=== PATIENT | female | born 1955 | race Caucasian/White ===

== ENCOUNTER 2020-11-13 14:23 | Emergency (ER) | payer OTHER, SELFPAY ==
[2020-11-13 14:26] VITALS: BP 165/90; PULSE 92; RESP 18; TEMP 36.9; O2SAT 97; BMI 23.7
[2020-11-13 16:24] LABS: Influenza A PCR NEGATIVE (Negative); Influenza B PCR NEGATIVE (Negative); Resp Syncy Virus RNA Qual PCR NEGATIVE (Negative); SARS COV2 PCR INHOUSE NEGATIVE (Negative)
--- NOTE | 2020-11-13 16:55 | ED.URI ---
HPI - URI/Sore Throat General Chief Complaint: Upper Respiratory Symptoms Stated Complaint: HEADACHE SORE THROAT Time Seen by Provider: 11/13/20 16:32 Source: patient and behavioral modification assistant Mode of arrival: ambulatory Limitations: language barrier History of Present Illness HPI Narrative: 65 yo female here with cough, sore throat, wheezing x 4 days. No chest pain, shortness of breath, fevers, chills. MD elicited complaint: cough and sore throat Related Data Previous Rx's Medication Instructions Recorded prednisone 40 mg PO DAILY #10 tab 11/13/20 Allergies Allergy/AdvReac Type Severity Reaction Status Date / Time aspirin [Aspirin] Allergy Unknown HEART Unverified 05/12/20 15:56 PALPITATIONS Review of Systems Review of Systems: Yes all other systems are reviewed and are negative Constitutional: Constitutional: Reports no additional constitutional complaints, Denies body ache(s), Denies chills, Denies fever(s), Denies headache(s) and Denies weakness Eyes: Eyes: Reports no additional eye complaints and Denies change in vision ENT: Reports system reviewed and no additional complaints, except as documented, Denies dizziness, Denies headache(s), Denies nasal congestion, Denies nasal discharge, Denies neck pain and Reports sore throat Cardiovascular: Cardiovascular: Reports no additional cardiovascular complaints, Denies chest pain, Denies leg edema and Denies dyspnea Respiratory: Respiratory: Reports no additional respiratory complaints, Reports cough and Denies dyspnea Gastrointestinal: Gastrointestinal: Reports no additional gastrointestinal complaints, Denies abdominal pain, Denies diarrhea, Denies nausea and Denies vomiting Genitourinary: Genitourinary: Reports no additional female genitourinary complaints and Denies urinary incontinence Musculoskeletal: Musculoskeletal: Reports no additional musculoskeletal complaints, Denies back pain, Denies arthralgias, Denies joint swelling, Denies neck pain, Denies numbness and Denies tingling Integumentary/Breasts: Skin/Breast: Reports system reviewed and no additional complaints, except as docu and Denies rash Neurologic: Denies Abnormal speech present, Denies dizziness, Denies headache(s), Denies numbness, Denies tingling and Denies weakness PMFSH Past Medical History Attestation statement: The following information was validated with the patient. Source: old records reviewed and nursing notes reviewed Medical History Asthma Hypercholesteremia Hypertension Social History Social History Advance Directives: No Advance Directives Information Provided: No Physical Exam Vital Signs: Vital Signs: Last Vital Signs Temp 98.5 F 11/13/20 14:26 Pulse 92 11/13/20 14:26 Resp 18 11/13/20 14:26 BP 165/90 H 11/13/20 14:26 Pulse Ox 97 11/13/20 14:26 Body Mass Index 23.7 Const: General: cooperative, healthy appearing, comfortable and no acute distress Orientation/consciousness: patient oriented x3 Limitations: no limitations HENMT: Head: Yes normal to inspection Ears: hearing grossly normal bilaterally and TM's normal bilaterally General nose exam: Normal external nose present Face and sinus: Yes normal facial exam Mouth: Normal oral and palatal mucosa present Throat: Yes posterior oropharynx normal, Yes tonsils normal, Yes uvula midline and No peritonsillar mass Eyes: General: appearance normal, both eyes and all related structures Pupils: Equal, round and reactive pupils present Neck: Neck: Yes normal visual inspection Chest: Chest palpation & inspection: normal inspection of the chest Resp: Other: mild exp wheezing Effort & Inspection: normal respiratory effort Cardio: Rate: regular rate Rhythm: regular rhythm Peripheral pulses: Peripheral pulses 2+ throughout GI: Inspection: Yes normal to inspection Palpation (GI): Soft to palpation and nontender Auscultation: normal bowel sounds Back/Spine/Pelvis: Thoracic/Lumbar Spine: thoracic and lumbar spine normal to inspection Skin: General skin exam: no rashes or lesions noted Neuro: General: patient oriented x3, no focal motor deficits and normal sensation to monofilament Cranial nerves: Yes Equal, round and reactive pupils present Cognition (Neuro): normal cognition Speech: No Abnormal speech present Gait exam (Neuro): Normal gait present Motor exam (neuro): 5/5 motor strength present throughout Extrem: General: Yes normal to inspection Course Course Course Narrative: URI symptoms x several days with wheezing. COVID screen negative. Rapid strep negative. Exam not c.w with strep pharyngitis. Mild exp wheezing on exam improved with albuterol MDI. Stable vital signs. Likely viral syndrome. Will start on pred x 5 days, MDI for home. Reviewed worrisome signs/symptoms with patient and when to return to ED. Comfortable with discharge home. MDM - URI/Sore Throat Lab Data Labs: Lab Results 11/13/20 Range/Units 15:36 Coronavirus (PCR) NEGATIVE (Negative) Influenza Type A (PCR) NEGATIVE (Negative) Influenza Type B (PCR) NEGATIVE (Negative) RSV RNA Qual (PCR) NEGATIVE (Negative) Discharge Plan Discharge Clinical Impression: Upper respiratory infection Qualifiers: URI type: unspecified URI Qualified Code(s): J06.9 - Acute upper respiratory infection, unspecified Patient Disposition: Home, Self-Care Instructions: Acute Bronchitis (ED) Additional Instructions: Increase fluids, rest Take motrin or tylenol for pain or fever Salt water gargles Your covid test was negative today use albuterol 2 puffs every 4 hrs as needed for cough or wheezing Prescriptions: New prednisone 20 mg tablet 40 mg PO DAILY Qty: 10 RF: 0 Referrals: Weston Lawton MD [Primary Care Provider] - 2 days Print Language: Norwegian
== END 2020-11-13 19:00 | disposition home or self-care (01) ==
PROVIDERS: Emergency Provider Internal Medicine; PCP Internal Medicine
DX: J06.9 Acute upper respiratory infection, unspecified (principal); Z20.822 Contact with and (suspected) exposure to COVID-19; I10 Essential (primary) hypertension; J45.909 Unspecified asthma, uncomplicated
CPT/HCPCS: 0241U; 36415; 87071; 87880; 99283; 99284

== ENCOUNTER 2022-05-20 11:04 | Emergency (ER) | payer OTHER, SELFPAY | END 2022-05-20 14:01 | disposition left against medical advice (07) | PROVIDERS: Emergency Provider Emergency Medicine; PCP Internal Medicine | DX: M25.512 Pain in left shoulder (principal) ==

== ENCOUNTER 2023-09-18 17:25 | Inpatient (IN) | payer MEDICARE, SELFPAY ==
--- NOTE | ~2023-09-18 | CT_ITS ---
EXAMINATION: CT ANGIOGRAM OF THE CHEST WITH AND WITHOUT CONTRAST (CT PULMONARY ANGIOGRAM FOR PE) CLINICAL INFORMATION: Reason for Exam shortness of breath COMPARISON: Chest x-ray performed earlier today TECHNIQUE: Prior to contrast administration, noncontrast localization images were obtained. Subsequently, multidetector volumetric imaging was performed from the thoracic inlet to below the diaphragms following the administration of 80 mL Omnipaque 350 intravenous contrast. No contrast reaction reported Sagittal, coronal, and MIP oblique sagittal reformatted images were obtained on the CT workstation, uploaded to PACS, and reviewed. This CT examination was performed using dose optimization techniques as appropriate, variously including the following: *Automated exposure control *Adjustment of mA and/or kV according to patient size (this includes techniques or standardized protocols for targeted exams where dose is matched to indication/reason for exam; i.e. extremities or head) *Use of iterative reconstruction technique Total exam dose-length product 92 mGy-cm FINDINGS: QUALITY OF STUDY/CONTRAST BOLUS: Satisfactory. PULMONARY ARTERIES: No pulmonary emboli. THORACIC AORTA: No aneurysm. LUNG: There is diffuse centrilobular emphysema. There is a right infrahilar paramediastinal mass measuring approximately 7.3 cm in craniocaudad length, 4.0 cm in AP and 5.6 cm wide. Focal atelectasis/consolidation seen in the right lower lobe medial basal segment. Rest of lungs are clear and expanded PLEURA: No pleural effusion or pneumothorax. MEDIASTINUM: Normal heart size. No pericardial effusion. No hilar or mediastinal lymphadenopathy. No evidence of septal bowing or right heart strain. CORONARY ARTERY CALCIFICATION: None visualized on this study. CHEST WALL/AXILLA: No axillary or internal mammary lymphadenopathy. OSSEOUS STRUCTURES: No acute or suspicious osseous abnormality. UPPER ABDOMEN: There is 1.5 cm hypodense lesion left hepatic lobe. No additional lesions seen. There is probably a small bone island nonenhancing cyst upper pole left kidney. No reflux of contrast into the hepatic veins to suggest elevated right heart pressures. CT/CT angio chest PE protocol IMPRESSION: 1. No evidence of PE. 2. No evidence of aortic aneurysm. 3. Right infrahilar paramediastinal mass with medial basal segment right lower lobe atelectasis/consolidation. Recommend CT-guided biopsy 4. Diffuse centrilobular emphysema. VTE: negative.
--- NOTE | ~2023-09-18 | XR_ITS ---
EXAMINATION: XR CHEST CLINICAL INFORMATION: Shortness of breath COMPARISON: Previous chest x-ray most recent February 2019 TECHNIQUE: Frontal view of the chest was obtained. FINDINGS: The cardiac and mediastinal contours are normal. There is a new right jugular port with tip projecting over the SVC. There are increased markings at the right lung base suggestive of atelectasis or small infiltrate. There may be a small right pleural effusion. The left lung is clear. No left pleural effusion. Degenerative changes of the spine. XR/XR chest 1V IMPRESSION: Increased markings at the right lung base suggestive of atelectasis or small infiltrate and small right pleural effusion.
--- NOTE | 2023-09-18 17:55 | ECG_ITS ---
Test Reason : DYSPNEA Blood Pressure : / mmHG Vent. Rate : 087 BPM Atrial Rate : 087 BPM P-R Int : 124 ms QRS Dur : 082 ms QT Int : 360 ms P-R-T Axes : 060 052 052 degrees QTc Int : 433 ms Normal sinus rhythm Normal ECG When compared with ECG of 19-AUG-2010 23:03, No significant change was found Referred By: Mike Anderson Electronically Signed By:Evin Kebede
[2023-09-18 18:02] VITALS: BP 124/66; PULSE 91; RESP 20; TEMP 36.8; O2SAT 95
[2023-09-18 18:11] VITALS: BP 124/66; PULSE 86; RESP 20; TEMP 36.8; O2SAT 96; BMI 23.0
[2023-09-18 18:40] LABS: MANUAL DIFF FLAG NO
[2023-09-18 18:43] LABS: Basophils Percent Auto 0.2 % (0-2); Hematocrit 30.4 % (37.0-47.0); Hemoglobin 10.2 g/dl (12.0-16.0); Imm Gran Abs Auto 0.03 X10*3/uL (0.00-0.03); Imm Gran Pct Auto 0.5 % (0.0-0.4); Lymphocytes Absolute Auto 0.4 X10*3/uL (1.2-4.9); Lymphocytes Percent Auto 6.1 % (20-40); Mean Corpuscular HGB Conc 33.6 g/dl (31.0-35.0); Mean Corpuscular Hemoglobin 28.9 pg (27.0-33.0); Mean Corpuscular Volume 86.1 fL (80.0-98.0); Mean Platelet Volume 8.7 fL (9.4-12.3); Monocytes Absolute Auto 0.3 X10*3/uL (0.1-1.2); Monocytes Percent Auto 4.8 % (2-11); Neutrophils Absolute Auto 5.7 x10*3/uL (2.0-8.3); Neutrophils Percent Auto 88.4 % (45-73); Platelet Count 338 X10*3/uL (160-400); Red Blood Count 3.53 X10*6/uL (4.20-5.50); Red Cell Distribution Width 14.6 % (11.0-16.0); White Blood Count 6.4 X10*3/uL (4.8-10.8)
[2023-09-18 18:50] LABS: Prothrombin Time 12.5 SEC (11.1-13.3)
[2023-09-18 18:53] LABS: Partial Thromboplastin Time 25.7 SEC (26.0-36.4)
[2023-09-18 18:57] LABS: Alanine Aminotransferase 16 U/L (0-31); Albumin Level 3.7 g/dL (3.5-5.0); Alkaline Phosphatase 71 U/L (39-117); Anion Gap 12 (12-20); Aspartate Amino Transferase 17 U/L (5-31); Bilirubin Total 0.1 mg/dL (0.0-1.0); Blood Urea Nitrogen 14 mg/dL (9-16); Calcium 8.7 mg/dL (8.4-10.2); Carbon Dioxide 21 mmol/L (22-29); Chloride 106 mmol/L (96-108); Creatinine Clr Calc Pharmacy 85.2; Estimated Glomerular Filt Rate > 60; Glucose Random 105 mg/dL (60-115); Lipase 11 U/L (8-78); Sodium 135 mmol/L (135-145); Total Protein 7.1 g/dL (6.5-8.0)
[2023-09-18 19:03] LABS: B Type Natriuretic Peptide 11 pg/mL (<100)
[2023-09-18 19:04] LABS: COVID-19 Test Negative (Negative); IDNOW Serial# 6674DD1D
--- NOTE | 2023-09-18 19:30 | ED.GENADULT ---
HPI - General Adult General Chief complaint: Dyspnea Stated complaint: SOB HX OF LUNG CA Time Seen by Provider: 09/18/23 17:30 Source: patient, RN notes reviewed and old records reviewed Mode of arrival: EMS Limitations: language barrier History of Present Illness HPI narrative: 68-year-old female past medical history significant for lung cancer with her last chemotherapy treatment yesterday per her report presents for evaluation of shortness of breath, cough. She reports that she has had symptoms for the last 3 or 4 days She denies any fevers or chills but endorses cough She also complains of shortness of breath. She has not on oxygen at baseline Denies any leg swelling Denies any history of DVT or PE. She is not anticoagulated No other complaints or concerns at this time Related Data Previous Rx's Medication Instructions Recorded prednisone 20 mg tablet 40 mg (2 x 20 mg) PO DAILY #10 tabs 11/13/20 amoxicillin 875 mg-potassium 1 tab PO BID #13 tabs 09/19/23 clavulanate 125 mg tablet Allergies Allergy/AdvReac Type Severity Reaction Status Date / Time aspirin [Aspirin] Allergy Unknown HEART Verified 09/18/23 18:14 PALPITATIONS Review of Systems Constitutional: Constitutional: Denies chills, Denies fever(s) and Denies headache(s) Eyes: Eyes: Denies blurry vision ENT: Denies headache(s) and Reports sore throat Cardiovascular: Cardiovascular: Reports chest pain and Reports dyspnea Respiratory: Respiratory: Reports cough, Reports pain with cough, Reports dyspnea and Denies wheezing Gastrointestinal: Gastrointestinal: Denies abdominal pain, Denies nausea and Denies vomiting Musculoskeletal: Musculoskeletal: Denies back pain Integumentary/Breasts: Skin/Breast: Denies rash Neurologic: Denies headache(s) Allergic/Immunologic: Allergic/Immunologic: Denies wheezing [facility] Past Medical History Medical History Asthma Hypercholesteremia Hypertension Social History Social History Advance Directives: No Advance Directives Information Provided: No Physical Exam ED Vital Signs: Vital Signs - 24 hr 09/18/23 18:02 09/18/23 18:11 09/18/23 19:33 Temperature 98.2 F 98.2 F 98.4 F Pulse Rate 91 86 87 Respiratory Rate 20 20 22 H Blood Pressure 124/66 124/66 131/73 Pulse Oximetry 95 96 95 Oxygen Delivery Method Nasal Cannula Nasal Cannula Nasal Cannula Oxygen Flow Rate 2 09/19/23 00:39 Temperature 98.2 F Pulse Rate 77 Respiratory Rate 20 Blood Pressure 124/65 Pulse Oximetry 96 Oxygen Delivery Method Nasal Cannula Oxygen Flow Rate 2 BMI result Body Mass Index 23.0 Const General: healthy appearing, comfortable, no acute distress, alert and awake Nutritional Appearance: well nourished Orientation/consciousness: patient oriented x3 HENMT Head: Yes normocephalic and Yes atraumatic Eyes Eyelids: Yes eyelids normal Conjunctivae: conjunctivae normal Sclerae: sclerae normal Corneas: corneas normal Pupils: Equal, round and reactive pupils present EOM: EOMs intact bilaterally Neck Neck: Yes full ROM Resp Effort & Inspection: normal respiratory effort, able to speak in complete sentences, no audible wheezes and not labored Auscultation: clear to auscultation bilaterally Cardio Rate: regular rate Rhythm: regular rhythm GI Inspection: No distended Palpation (GI): Soft to palpation, not firm, nontender, no guarding and not rigid Skin General skin exam: elasticity normal Neuro General: patient oriented x3 Cranial nerves: Yes Equal, round and reactive pupils present and Yes Bilaterally intact EOM present Cognition (Neuro): normal cognition Extrem Other: Moving all extremities well without any obvious deformities Course Reevaluation(s) Reevaluation #1: Given the patient is hypercoagulable with lung cancer, a CTA was ordered to rule out PE. Time: 20:12 Reevaluation #2: CTA shows a right infrahilar mass and right lower lobe consolidation versus atelectasis. Given the acute symptoms and the fact the patient is immunocompromised, we will treat with Augmentin and azithromycin. Patient does not meet criteria for admission. She ambulated on room air with a sat measuring 93% or better. She will be discharged home per her request. Time: 00:39 Reevaluation #3: Patient was to be discharged. She weighs staff over as she was having a sudden onset of dyspnea. I initially thought she was having anxiety attack, however when I put the O2 sat back on her, the sat was 82% and dropped as low as 72%. She was placed on oxygen and slowly began to improve. Her lungs were clear during this episode but she had tracheal wheezing. She was given a dose of Solu-Medrol. Blood cultures were ordered as well as lactic acid. I do not suspect flash pulmonary edema as the patient did not receive any IV fluids. I considered an allergic reaction, however she has no listed allergies, she had no facial or retropharyngeal edema. Her symptoms improved with chest oxygen. However given the significant hypoxia I feel that she requires at least observation in the hospital. Time: 01:56 Medications Administered Discontinued Medications Generic Name Dose Route Start Last Admin Trade Name Calderon PRN Reason Stop Dose Admin Amoxicillin/Clavulanate Potassium 875 mg 09/19/23 00:40 09/19/23 01:07 Amoxicillin/Potassium Clav 875 Mg Tablet PO 09/19/23 00:41 875 mg ONCE ONE Administration Azithromycin 500 mg 09/19/23 00:40 09/19/23 01:07 Azithromycin 500 Mg Tablet PO 09/19/23 00:41 500 mg ONCE ONE Administration Iohexol 100 ml 09/18/23 21:42 09/18/23 21:42 Iohexol 350 Mg/Ml 100 Ml Infus..Btl IV 09/18/23 21:43 65 ml ONCE ONE Administration Methylprednisolone Sodium Succinate 125 mg 09/19/23 01:43 09/19/23 01:41 Methylprednisolone Sod Succ 125 Mg/2 Ml Vial IVPUSH 09/19/23 01:44 125 mg ONCE ONE Administration Medical Decision Making Medical Decision Making [facility] Narrative: 68-year-old female with past medical history significant for lung cancer reportedly actively undergoing treatment presents for evaluation of shortness of breath for 3-4 days. She is quite well appearing, her oxygen saturation is stable. Plan for labs, chest x-ray, viral swabs. Differential Diagnosis Differential Diagnoses: The differential diagnosis associated with the presentation includes COVID-19 Influenza Lung cancer Pneumonia PE less likely Lab Data MDM Lab Attestation statement: I reviewed the patient's lab results. No leukocytosis. The patient has a mild anemia. Unclear based on his last labs here were just over 5 years ago. the patient denies any active bleeding. No other hematologic abnormalities. The patient's CO2 is low at 21. This may be related to hyperventilation. No other lab abnormalities. 09/18/23 18:34 09/18/23 18:34 Labs: Lab Results 09/18/23 09/18/23 Range/Units 18:34 19:37 WBC 6.4 (4.8-10.8) X10*3/uL RBC 3.53 L (4.20-5.50) X10*6/uL Hgb 10.2 L (12.0-16.0) g/dl Hct 30.4 L (37.0-47.0) % MCV 86.1 (80.0-98.0) fL MCH 28.9 (27.0-33.0) pg MCHC 33.6 (31.0-35.0) g/dl RDW 14.6 (11.0-16.0) % Plt Count 338 (160-400) X10*3/uL MPV 8.7 L (9.4-12.3) fL Immature Gran % (Auto) 0.5 H (0.0-0.4) % Neut % (Auto) 88.4 H (45-73) % Lymph % (Auto) 6.1 L (20-40) % Buchanan % (Auto) 4.8 (2-11) % Eos % (Auto) 0.0 (0-4) % Baso % (Auto) 0.2 (0-2) % Lymph # (Auto) 0.4 L (1.2-4.9) X10*3/uL Buchanan # (Auto) 0.3 (0.1-1.2) X10*3/uL Eos # (Auto) 0.0 (0.0-0.4) X10*3/uL Baso # (Auto) 0.0 (0.0-0.2) X10*3/uL Abs Immat Gran (auto) 0.03 (0.00-0.03) X10*3/uL Absolute Neuts (auto) 5.7 (2.0-8.3) x10*3/uL Absolute Nucleated RBC 0.000 (0.0-0.012) X10*3/uL Nucleated RBC % (auto) 0.0 (0.0-0.2) /100WBC PT 12.5 (11.1-13.3) SEC INR 1.0 (0.9-1.1) APTT 25.7 L (26.0-36.4) SEC Sodium 135 (135-145) mmol/L Potassium 4.0 (3.3-5.1) mmol/L Chloride 106 (96-108) mmol/L Carbon Dioxide 21 L (22-29) mmol/L Anion Gap 12 (12-20) BUN 14 (9-16) mg/dL Creatinine 0.53 (0.5-1.4) mg/dL Estim Creat Clear Calc 85.2 Estimated GFR > 60 Random Glucose 105 (60-115) mg/dL Calcium 8.7 (8.4-10.2) mg/dL Total Bilirubin 0.1 (0.0-1.0) mg/dL AST 17 (5-31) U/L ALT 16 (0-31) U/L Alkaline Phosphatase 71 (39-117) U/L B-Natriuretic Peptide 11 (<100) pg/mL Total Protein 7.1 (6.5-8.0) g/dL Albumin 3.7 (3.5-5.0) g/dL Lipase 11 (8-78) U/L COVID-19 ([facility]) Negative (Negative) COVID-19 Clin Com See Note Influenza Type A ([facility]) Negative (Negative) Influenza Type B ([facility]) Negative (Negative) Influenza A & B Note See Note Discharge Plan Discharge Clinical Impression: Dyspnea, Community acquired pneumonia Patient Disposition: Admitted As Inpatient Instructions: Community Acquired Pneumonia (ED) Additional Instructions: Your workup in the ER today was significant for a possible pneumonia in the right lower lung. Take both antibiotics as prescribed Call your oncologist tomorrow morning and let them know you were diagnosed with pneumonia Return for new or worsening symptoms Prescriptions: New amoxicillin-pot clavulanate 875-125 mg tablet 1 tab PO BID Qty: 13 0RF No Action prednisone 20 mg tablet 40 mg PO DAILY Qty: 10 0RF Interventions: ED Discharge Assessment Last Done: 09/19/23 01:10
[2023-09-18 19:33] VITALS: BP 131/73; PULSE 87; RESP 22; TEMP 36.9; O2SAT 95
[2023-09-18 19:58] LABS: IDNOW Serial# 55D5AD1C; Influenza A Negative (Negative); Influenza B2 Negative (Negative)
[2023-09-18] MEDS: iohexoL 350 MG/ML 100 ML INFUS..BTL IV (21:42)
[2023-09-19] VITALS (12 sets, daily range): BP systolic 100–130; BP diastolic 50–80; PULSE 77–113; RESP 16–28; TEMP 36.7–37.2; O2SAT 74–96; BMI 23.7
[2023-09-19] MEDS: Amoxicillin/Potassium Clav 875 MG TABLET PO (01:07)
[2023-09-19] MEDS: Azithromycin 500 MG TABLET PO (01:07)
[2023-09-19] MEDS: methylPREDNISolone Sod Succ 125 MG/2 ML VIAL IVPUSH (01:41)
[2023-09-19] MEDS: Albuterol Sulfate 7.5 MG, Albuterol/Iprat 2.5/0.5MG 3 ML 3 ML INHALE (02:12)
[2023-09-19 02:17] LABS: Lactic Acid 1.7 mmol/L (0.5-2.0)
[2023-09-19] MEDS: Milk of Magnesia 30 ML ORAL.SUSP PO (02:45)
[2023-09-19] MEDS: LORazepam 1 MG TABLET PO ×3 (02:45→20:26)
--- NOTE | 2023-09-19 03:18 | P.HPHOSP_ITS ---
History of Present Illness Date of Service: 09/19/23 Attending physician on admission: Ngozi Bar Chief Complaint: Shortness of breath Marsha Gaffney is a 68 years old woman with past medical history significant for lung cancer on chemotherapy (last one 3 days ago) and radiation (at [facility]) presents to the emergency department complaining of worsening shortness of breath over the last few days. She said that her throat is very dry and she has been drinking lots of water in order to relieve the dryness of her throat. She said that she choked with water before current symptoms. She does complain of occasional cough. Her sputum is clear but sometimes they are minimal quantity of blood. She is anxious. She denied any chest pain, wheezing, nausea, vomiting, fever or chills. She denied any acute gastrointestinal genitourinary symptoms. She is a former tobacco smoker. She denies alcohol abuse or illicit drug use. In the ED, she was found to have sinus tachycardia and tachypnea. Blood workup including CBC and CMP is basically unremarkable. There is no lactic acidosis She underwent a pulmonary CTA that showed possible consolidation in the right lower lobe + right perihilar mass. After receiving treatment with bronchodilator therapy and IV steroids patient's respiratory issues improve. However, she became diaphoretic, pale and tachypnea while ambulating. Her oxygen saturation dropped to 70% responded went to oxygen therapy. ED tx: Azithromycin 500 mg p.o. Augmentin 875 mg p.o. DuoNeb, Solu-Medrol 125 mg IV, albuterol 7.5 mg/ipratropium 3 mL, MOM 30 mL p.o. Review of Systems 2 Review of Systems: All 12 systems were reviewed and normal except as noted in HPI. [facility] Medical History Asthma Hypercholesteremia Hypertension Social History Advance Directives: No Advance Directives Information Provided: No Meds Allergies Allergy/AdvReac Type Severity Reaction Status Date / Time aspirin [Aspirin] Allergy Unknown HEART Verified 09/18/23 18:14 PALPITATIONS Active Medications: Current Medications Acetaminophen (Acetaminophen 325 Mg Tablet) 975 mg PO Q6H PRN PRN Reason: Pain, Mild (Pain Scale 1-3) Albuterol Sulfate (Albuterol Sulfate (0.083%) 2.5 Mg/3 Ml Vial.Neb) 2.5 mg INHALE RQ4H WHILE AWAKE PRN PRN Reason: wheezing Atorvastatin Calcium (Atorvastatin Calcium 20 Mg Tablet) 20 mg PO BEDTIME [facility] Heparin Sodium (Porcine) (Heparin Sodium,Porcine 5,000 Unit/Ml Vial) 5,000 unit SUBCUT Q8H MEGAN Ampicillin Sodium/Sulbactam (Sodium 1.5 gm/ Sodium Chloride) 100 mls @ 200 mls/hr IV Q6H [facility] Lisinopril (Lisinopril 10 Mg Tablet) 10 mg PO DAILY [facility]; Protocol Lorazepam (Lorazepam 1 Mg Tablet) 1 mg PO BID [facility] Last Admin: 09/19/23 02:45 Dose: 1 mg Megestrol Acetate (Megestrol Acetate 20 Mg Tablet) 40 mg PO DAILY [facility] Sodium Chloride (0.9 % Sodium Chloride Flush 3 Ml Syringe) 3 ml IVFLUSH QSHIFT [facility] Home Medications Medication Instructions Recorded Confirmed Last Taken Type atorvastatin 20 mg tablet 20 mg PO BEDTIME 09/19/23 09/19/23 Unknown History ipratropium 20 mcg-albuterol 100 1 puff inhalation Q4H PRN wheezing 09/19/23 09/19/23 Unknown History mcg/actuation mist for inhalation (Combivent Respimat) lisinopril 10 mg tablet 10 mg PO DAILY 09/19/23 09/19/23 Unknown History lorazepam 1 mg tablet 1 - 2 mg PO BID 09/19/23 09/19/23 Unknown History megestrol 40 mg tablet 40 mg PO DAILY 09/19/23 09/19/23 Unknown History ondansetron 8 mg disintegrating 8 mg PO TID PRN Nausea And Vomiting 09/19/23 09/19/23 Unknown History tablet Physical Exam 2 Vital Signs and Narrative: Vital Signs: Last Vital Signs Temp 98.2 F 09/19/23 00:39 Pulse 110 H 09/19/23 02:14 Resp 26 H 09/19/23 02:14 BP 130/70 09/19/23 02:07 Pulse Ox 74 L 09/19/23 01:40 O2 Del Method Room Air 09/19/23 01:40 O2 Flow Rate 2 09/19/23 00:39 Oxygen Flow Rate 2 09/18/23 18:11 BMI result Body Mass Index 23.0 Constitutional - Awake and Alert, No apparent distress. Anxious. Cooperative. HEENT - atraumatic. Normocephalic. Dry oral mucosa Heart - tachycardia. Regular rhythm. No murmur. Lungs - Normal lung expansion, Normal respiratory effort, No respiratory distress, tachypnea. Mild crackles right base. No wheezing. No rhonchi. Gastrointestinal - NT / ND; +BS; No rebound or guarding Extremities - no calf tenderness bilaterally, no swelling Musculoskeletal - Normal inspection, normal ROM Skin - Warm/Dry Neurological - Alert & oriented x3 Psychological - Anxious Results Labs 09/18/23 18:34 09/18/23 18:34 Labs: Laboratory Results - last 24 hr 09/18/23 09/18/23 09/19/23 18:34 19:37 01:52 MCV 86.1 MCH 28.9 MCHC 33.6 RDW 14.6 Plt Count 338 MPV 8.7 L Immature Gran % (Auto) 0.5 H Neut % (Auto) 88.4 H Lymph % (Auto) 6.1 L [place] % (Auto) 4.8 Eos % (Auto) 0.0 Baso % (Auto) 0.2 Lymph # (Auto) 0.4 L [place] # (Auto) 0.3 Eos # (Auto) 0.0 Baso # (Auto) 0.0 Abs Immat Gran (auto) 0.03 Absolute Neuts (auto) 5.7 Absolute Nucleated RBC 0.000 Nucleated RBC % (auto) 0.0 PT 12.5 INR 1.0 APTT 25.7 L Anion Gap 12 Estim Creat Clear Calc 85.2 Estimated GFR > 60 Random Glucose 105 Lactic Acid 1.7 Calcium 8.7 Total Bilirubin 0.1 AST 17 ALT 16 Alkaline Phosphatase 71 B-Natriuretic Peptide 11 Total Protein 7.1 Albumin 3.7 Lipase 11 COVID-19 (TAYLOR) Negative COVID-19 Clin Com See Note Influenza Type A (MAKSIM) Negative Influenza Type B (MAKSIM) Negative Influenza A & B Note See Note Imaging Radiologist's Impressions: Impressions Chest X-Ray 09/18/23 17:10 IMPRESSION: Increased markings at the right lung base suggestive of atelectasis or small infiltrate and small right pleural effusion. Chest CTA 09/18/23 21:57 IMPRESSION: 1. No evidence of PE. 2. No evidence of aortic aneurysm. 3. Right infrahilar paramediastinal mass with medial basal segment right lower lobe atelectasis/consolidation. Recommend CT-guided biopsy 4. Diffuse centrilobular emphysema. VTE: negative. Assessment and Plan (1) Aspiration pneumonia: Qualifiers: Aspiration pneumonia type: unspecified Laterality: right Lung location: lower lobe of lung Qualified Code(s): J69.0 - Pneumonitis due to inhalation of food and vomit Status: Acute (2) Hypoxia: Status: Acute Plan Marsha Gaffney is a 68 years old woman with past medical history significant for lung cancer on chemotherapy and radiation: * Hypoxia likely secondary to pneumonia, likely aspiration. Admit to hospitalist service. Telemetry. Pulse oximetry. Continue supplemental oxygen to keep oxygen saturation above 90. Start treatment with Unasyn IV. Bronchodilator therapy as needed. Swallow evaluation. * Hyperlipidemia. Continue statin. * Essential hypertension. Continue lisinopril. * Anxiety. Continue Ativan 1 mg p.o. twice daily as needed. * Anemia. Chronic. Continue to monitor hemoglobin. (pt was unable to provide pre med rec -official med rec is pending). DVT prophylaxis: Heparin subcut. Code status: Full. Patient will need hospitalization for at least 2 midnights for aspiration pneumonia treatment with supplemental oxygen, IV antibiotic therapy, bronchodilator therapy and close monitoring of vital signs Quality Stroke Does the patient have a stroke diagnosis?: No VTE Prior VTE?: No VTE Risk Level:: Medical - moderate - high VTE Device Contraindication: Treatment Not Indicated VTE Drug Contraindication: N/A - Med Ordered
[2023-09-19 07:04] LABS: Hematocrit 30.8 % (37.0-47.0); Imm Gran Abs Auto 0.03 X10*3/uL (0.00-0.03); Imm Gran Pct Auto 0.4 % (0.0-0.4); Lymphocytes Absolute Auto 0.1 X10*3/uL (1.2-4.9); Lymphocytes Percent Auto 1.2 % (20-40); MANUAL DIFF FLAG SCAN; Mean Corpuscular HGB Conc 32.5 g/dl (31.0-35.0); Mean Corpuscular Hemoglobin 28.1 pg (27.0-33.0); Mean Corpuscular Volume 86.5 fL (80.0-98.0); Mean Platelet Volume 9.2 fL (9.4-12.3); Monocytes Absolute Auto 0.1 X10*3/uL (0.1-1.2); Monocytes Percent Auto 0.8 % (2-11); Neutrophils Absolute Auto 7.2 x10*3/uL (2.0-8.3); Neutrophils Percent Auto 97.6 % (45-73); Platelet Count 320 X10*3/uL (160-400); Red Blood Count 3.56 X10*6/uL (4.20-5.50); Red Cell Distribution Width 14.5 % (11.0-16.0); SCAN SMEAR FLAG 1; White Blood Count 7.4 X10*3/uL (4.8-10.8)
--- NOTE | 2023-09-19 07:10 | PC.NURSE ---
Assumed care at this time, called pharmacy for medication Unasyn that was due at 6am. Also called for darell.
[2023-09-19 07:12] LABS: Anion Gap 15 (12-20); Blood Urea Nitrogen 12 mg/dL (9-16); Calcium 8.9 mg/dL (8.4-10.2); Carbon Dioxide 21 mmol/L (22-29); Chloride 105 mmol/L (96-108); Creatinine Clr Calc Pharmacy 80.6; Estimated Glomerular Filt Rate > 60; Glucose Random 130 mg/dL (60-115); Potassium 3.7 mmol/L (3.3-5.1); Sodium 137 mmol/L (135-145)
[2023-09-19 07:32] LABS: SLIDE REVIEW VERIFIED
[2023-09-19] MEDS: lisinopriL 10 MG TABLET PO (07:59)
[2023-09-19] MEDS: Heparin Sodium,Porcine 5,000 UNIT/ML VIAL 5000 UNIT SUBCUT ×3 (07:59→21:42)
--- NOTE | 2023-09-19 08:08 | PC.NURSE ---
Pt is a&ox4,respitations even and unlabored. denies cp and sob at this time. FIDEL, on 2lt nc. able to make needs known. Breakfast tray given.
[2023-09-19] MEDS: Ampicillin Sodium/Sulbactam Na 1.5 GM in 0.9 % Sodium Chloride 100 ML IV ×3 (08:17→20:26)
[2023-09-19] MEDS: Megestrol Acetate 20 MG TABLET 40 MG PO (08:18)
[2023-09-19] MEDS: 0.9 % Sodium Chloride Flush 3 ML SYRINGE IVFLUSH ×3 (08:35→20:26)
--- NOTE | 2023-09-19 11:42 | MHC.CM.PN ---
IMM 09/19. Pt lives with her son, is self-care. Son Juan will transport her home. HCP completed with pt, now on file. PCP: Dr. Weston Lawton
--- NOTE | 2023-09-19 13:49 | MHC.SL.SWA ---
Speech Pathologist Impression: WFL Risk of Aspiration Due to: History of Pneumonia Dysphasia Diet Status: All aspects of swallow WFL. Liquid Consistency and Strategies for Safe Swallow: Liquid Intake Recommendation: Thin Liquid Intake Strategies: Unrestricted Solid Food Consistency: Dietary Recommendations: Regular Additional Modifications to Solid Foods: Patient may need reminders not to drink fluids when reclined. Oral Medication Intake: Whole with Liquid Please contact the pharmacy regarding appropriate crushable or liquid drug formulations that are available whenever modified delivery is recommended. Compensatory Strategies and Precautions to be Taken for Safe Swallow: Sitting Upright (90 deg) Liquids from Cup Liquids from Straw Supervision While Eating and Drinking for Safe Swallow: None Needed Foods to Avoid: Swallowing Recommended Treatments: Recommendation for Speech: NA:Typical Evaluation Comment: Patient presents with all aspects of oral motor function and swallow function WFL. Recommend patient continue on current diet of REGULAR with THIN lqiuds, pills whole with liquid. No further speech services warranted as all aspects WFL. Patient may need reminders to be sure to sit up when drinking or eating and not be reclined. RN notified of results/recommendations in person, MD/RD by secure text. REGISTERED OCCUPATIONAL THERAPIST will D/C. Frequency/Duration: Date Range for Service Req: Timeline to reassess: Barrel Driller Clinican/Clinical Fellow: No Supervisory Statement: I have reviewed and agree with the student/clinical fellow's documentation: N/A Speech Language Pathologist: Kyra Thomas M.A., [facility]-REGISTERED OCCUPATIONAL THERAPIST
--- NOTE | 2023-09-19 16:40 | PM.EVENT ---
Event Note Date of Service: 09/19/23 Event Note: seen and examined this morning follow up for acute respiratory failure with hypoxia due to probable aspiration pneumonia and underlying lung cancer seen by speech - recommend regular diet with thin liquids breathing better, still with cough, no sob at rest blood cultures pending continue abx, remainder of plan as per admission H&P Time Spent With Patient Time: Total time managing care of this patient today ____ minutes.
[2023-09-19] MEDS: Atorvastatin Calcium 20 MG TABLET PO (20:26)
[2023-09-19] MEDS: Docusate Sodium 100 MG CAPSULE PO (20:26)
[2023-09-20] MEDS: Ampicillin Sodium/Sulbactam Na 1.5 GM in 0.9 % Sodium Chloride 100 ML IV ×4 (02:21→21:06)
[2023-09-20 03:53] VITALS: BP 123/65; PULSE 94; RESP 18; TEMP 37.1; O2SAT 96
[2023-09-20] MEDS: Heparin Sodium,Porcine 5,000 UNIT/ML VIAL 5000 UNIT SUBCUT ×3 (05:30→21:05)
[2023-09-20 07:51] VITALS: BP 111/74; PULSE 90; RESP 18; TEMP 36.2; O2SAT 91
[2023-09-20] MEDS: Megestrol Acetate 20 MG TABLET 40 MG PO (09:07)
[2023-09-20] MEDS: lisinopriL 10 MG TABLET PO (09:07)
[2023-09-20] MEDS: LORazepam 1 MG TABLET PO ×2 (09:07→21:05)
[2023-09-20] MEDS: 0.9 % Sodium Chloride Flush 3 ML SYRINGE IVFLUSH ×2 (09:07→14:41)
[2023-09-20 11:21] VITALS: BP 123/76; PULSE 112; RESP 18; TEMP 37; O2SAT 94
--- NOTE | 2023-09-20 15:31 | P.PNIM_ITS ---
Subjective Subjective Date of Service: 09/20/23 Interval History: seen and examined this morning follow up for pneumonia breathing improving at rest, but still with dypsnea on exertion ongoing cough Review of Systems Review of Systems: Yes all other systems are reviewed and are negative Constitutional Constitutional: Denies chills and Denies fever(s) Cardiovascular Cardiovascular: Denies chest pain, Denies palpitations and Reports dyspnea on exertion Respiratory Respiratory: Reports cough and Reports dyspnea on exertion Endocrine Endocrine: Denies palpitations Physical Exam 2 Vital Signs: Vital Signs: Last Vital Signs Temp 98.6 F 09/20/23 11:21 Pulse 112 H 09/20/23 11:21 Resp 18 09/20/23 11:21 BP 123/76 09/20/23 11:21 Pulse Ox 94 09/20/23 11:21 O2 Del Method Room Air 09/20/23 11:21 O2 Flow Rate 1 09/19/23 07:57 Oxygen Flow Rate 2 09/18/23 18:11 BMI result Body Mass Index 23.7 Const: General: cooperative, comfortable, alert and awake Nutritional Appearance: average body habitus Orientation/consciousness: patient oriented x3 Resp: Other: no wheeze Effort & Inspection: normal respiratory effort, able to speak in complete sentences, no respiratory distress and no use of accessory muscles Cardio: Rate: tachycardic GI: Inspection: No distended Palpation (GI): Soft to palpation and nontender Neuro: General: patient oriented x3, moves all extremities and CN's II-XI intact bilaterally Extrem: General: Yes no pedal edema Objective Data Active Medications Acetaminophen (Acetaminophen 325 Mg Tablet) 975 mg PO Q6H PRN PRN Reason: Pain, Mild (Pain Scale 1-3) Albuterol Sulfate (Albuterol Sulfate (0.083%) 2.5 Mg/3 Ml Vial.Neb) 2.5 mg INHALE RQ4H WHILE AWAKE PRN PRN Reason: wheezing Atorvastatin Calcium (Atorvastatin Calcium 20 Mg Tablet) 20 mg PO BEDTIME [facility] Last Admin: 09/19/23 20:26 Dose: 20 mg Documented By: KEVIN Docusate Sodium (Docusate Sodium 100 Mg Capsule) 100 mg PO BEDTIME [facility] Last Admin: 09/19/23 20:26 Dose: 100 mg Documented By: KEVIN Heparin Sodium (Porcine) (Heparin Sodium,Porcine 5,000 Unit/Ml Vial) 5,000 unit SUBCUT Q8H [facility] Last Admin: 09/20/23 14:41 Dose: 5,000 unit Documented By: FAVIAN Ampicillin Sodium/Sulbactam (Sodium 1.5 gm/ Sodium Chloride) 100 mls @ 200 mls/hr IV Q6H [facility] Last Infusion: 09/20/23 15:19 Dose: Infused Documented By: FAVIAN Lisinopril (Lisinopril 10 Mg Tablet) 10 mg PO DAILY [facility]; Protocol Last Admin: 09/20/23 09:07 Dose: 10 mg Documented By: FAVIAN Lorazepam (Lorazepam 1 Mg Tablet) 1 mg PO BID [facility] Last Admin: 09/20/23 09:07 Dose: 1 mg Documented By: FAVIAN Megestrol Acetate (Megestrol Acetate 20 Mg Tablet) 40 mg PO DAILY [facility] Last Admin: 09/20/23 09:07 Dose: 40 mg Documented By: FAVIAN Simethicone (Simethicone 80 Mg Tab.Chew) 80 mg PO QIDWMHS PRN PRN Reason: Gas Sodium Chloride (0.9 % Sodium Chloride Flush 3 Ml Syringe) 3 ml IVFLUSH QSHIFT [facility] Last Admin: 09/20/23 14:41 Dose: 3 ml Documented By: FAVIAN Labs 09/19/23 05:50 09/19/23 05:50 Microbiology Microbiology Results: Microbiology 09/19/23 01:52 Blood Culture - Preliminary Blood - Venous No growth after 24 hours. 09/19/23 01:52 Blood Culture - Preliminary Blood - Venous No growth after 24 hours. Assessment and Plan (1) Aspiration pneumonia: Status: Acute Plan This is a 68 years old woman with past medical history significant for lung cancer on chemotherapy and radiation who presented with cough and sob found to have pneumonia Acute hypoxic respiratory failure due to pneumonia, likely aspiration. continue Unasyn IV, started 09/19 seen by speech, rec regular diet breathing treatments and cough syrup Blood cultures negative to date Hyperlipidemia. Continue statin. Essential hypertension. Continue lisinopril. Anxiety. Continue Ativan Chronic normocytic anemia Above transfusion threshold lung cancer outpatient follow up DVT prophylaxis: Heparin subcut. Code status: Full. Patient requires ongoing inpatient stay for aspiration pneumonia treatment with supplemental oxygen, IV antibiotic therapy, bronchodilator therapy and close monitoring of vital signs Quality Stroke Does the patient have a stroke diagnosis?: No VTE Prior VTE?: No VTE Risk Level:: Medical - moderate - high VTE Device Contraindication: Treatment Not Indicated VTE Drug Contraindication: N/A - Med Ordered
--- NOTE | 2023-09-20 15:42 | MHC.CM.PN ---
EMR reviewed and per MD rounds, pt is not medically cleared for D/C due to the need for management of pneumonia. CM will continue to follow.
[2023-09-20 16:00] VITALS: BP 134/63; PULSE 98; RESP 18; TEMP 37.1; O2SAT 96
[2023-09-20 19:39] VITALS: BP 107/61; PULSE 95; RESP 20; TEMP 36.3; O2SAT 97
[2023-09-20] MEDS: Docusate Sodium 100 MG CAPSULE PO (21:05)
[2023-09-20] MEDS: Atorvastatin Calcium 20 MG TABLET PO (21:05)
[2023-09-20] MEDS: Zolpidem Tartrate 5 MG TABLET PO (21:47)
[2023-09-21] VITALS: BP 116/72; PULSE 96; RESP 18; TEMP 36.8; O2SAT 98
[2023-09-21] MEDS: Ampicillin Sodium/Sulbactam Na 1.5 GM in 0.9 % Sodium Chloride 100 ML IV ×2 (03:40→08:35)
[2023-09-21 03:43] VITALS: BP 106/57; PULSE 87; RESP 18; TEMP 36.4; O2SAT 94
[2023-09-21] MEDS: Heparin Sodium,Porcine 5,000 UNIT/ML VIAL 5000 UNIT SUBCUT (05:14)
[2023-09-21 07:14] VITALS: BP 91/66; PULSE 97; RESP 20; TEMP 36.4; O2SAT 97
[2023-09-21] MEDS: LORazepam 1 MG TABLET PO (08:37)
[2023-09-21] MEDS: Clopidogrel Bisulfate 75 MG TABLET PO (08:37)
[2023-09-21] MEDS: Megestrol Acetate 20 MG TABLET 40 MG PO (08:37)
[2023-09-21] MEDS: 0.9 % Sodium Chloride Flush 3 ML SYRINGE IVFLUSH ×2 (08:38)
[2023-09-21] MEDS: guaiFENesin 200 MG/10 ML 10 ML LIQUID PO (08:42)
--- NOTE | 2023-09-21 08:58 | PM.DS ---
DS: Providers Provider Date of Service: 09/21/23 Date of admission: 09/19/23 02:34 Date of discharge: 09/21/23 Primary care physician: Weston Lawton III, MD Attending physician on discharge: Giorgi Posey Discharging clinician: Tara Jackson DS: Diagnosis Discharge Diagnosis (1) Aspiration pneumonia: Status: Acute DS: Summary Hospital Course Hospital Course: From H&P on the day of admission Marsha Gaffney is a 68 years old woman with past medical history significant for lung cancer on chemotherapy (last one 3 days ago) and radiation (at [facility]) presents to the emergency department complaining of worsening shortness of breath over the last few days. She said that her throat is very dry and she has been drinking lots of water in order to relieve the dryness of her throat. She said that she choked with water before current symptoms. She does complain of occasional cough. Her sputum is clear but sometimes they are minimal quantity of blood. She is anxious. She denied any chest pain, wheezing, nausea, vomiting, fever or chills. She denied any acute gastrointestinal genitourinary symptoms. She is a former tobacco smoker. She denies alcohol abuse or illicit drug use. In the ED, she was found to have sinus tachycardia and tachypnea. Blood workup including CBC and CMP is basically unremarkable. There is no lactic acidosis She underwent a pulmonary CTA that showed possible consolidation in the right lower lobe + right perihilar mass. After receiving treatment with bronchodilator therapy and IV steroids patient's respiratory issues improve. However, she became diaphoretic, pale and tachypnea while ambulating. Her oxygen saturation dropped to 70% responded went to oxygen therapy. ED tx: Azithromycin 500 mg p.o. Augmentin 875 mg p.o. DuoNeb, Solu-Medrol 125 mg IV, albuterol 7.5 mg/ipratropium 3 mL, MOM 30 mL p.o. Acute hypoxic respiratory failure due to pneumonia from possible aspiration vs postobstructive with history of underlying lung cancer Flu and covid 19 testing were negative. she was treated with IV antibiotics, breathing treatments and symptomatic support for cough. She was weaned off of oxygen and has been able to ambualate without any shortness of breath. She will be discharged home to complete a course of antiobiotics. seen was seen by speech who recommended a regular diet. Blood cultures have remained negative to date. She has a follow up appointment with oncology next week. HTN. blood pressure has been trending on the lower side. recommend to decrease lisinopril to 5 mg daily and follow up with PCP Time Attestation Discharge coordination time: Greater than 30 minutes Quality: Safe Use of Opioids Does Pt have an Active Cancer Diagnosis on the Problem List?: Yes Opioid Measure Date for [facility] Report: 08/22/23 Opioid Measure Time for [facility] Report: 09:47 Quality: Stroke Does the patient have a stroke diagnosis?: No Physical Exam Vital Signs: Vital Signs: Last Vital Signs Temp 97.6 F 09/21/23 07:14 Pulse 97 09/21/23 07:14 Resp 20 09/21/23 07:14 BP 91/66 09/21/23 07:14 Pulse Ox 97 09/21/23 07:14 O2 Del Method Room Air 09/21/23 07:14 O2 Flow Rate 1 09/19/23 07:57 Oxygen Flow Rate 2 09/18/23 18:11 BMI result Body Mass Index 23.7 Const: General: cooperative, comfortable, no acute distress, alert and awake Nutritional Appearance: average body habitus Orientation/consciousness: patient oriented x3 Resp: Other: no wheeze, rhonchi mild right lower lung field Effort & Inspection: normal respiratory effort, able to speak in complete sentences, no respiratory distress and no use of accessory muscles Cardio: Rate: regular rate GI: Inspection: No distended Palpation (GI): Soft to palpation and nontender Neuro: General: patient oriented x3 Extrem: General: Yes no pedal edema DS: Data Data Completed and Pending Labs on day of discharge: Preliminary micro results at discharge 09/19/23 01:52 Blood Culture - Preliminary Blood - Venous No growth after 48 hours. 09/19/23 01:52 Blood Culture - Preliminary Blood - Venous No growth after 48 hours. Discharge Plan Discharge Anticipated Discharge Date/Time: 09/21/23 09:44 Patient Disposition: Home, Self-Care Discharge Diagnosis: pneumonia Referrals: Weston Lawton III, MD [Primary Care Provider] - 1 Week Discharge Medications: New amoxicillin-pot clavulanate 875-125 mg tablet 1 tab PO BID Qty: 13 0RF lisinopril 5 mg tablet 5 mg PO DAILY 30 Days Qty: 30 0RF benzonatate 100 mg capsule 100 mg PO TID PRN (Reason: cough) Qty: 14 0RF Continued prednisone 20 mg tablet 40 mg PO DAILY Qty: 10 0RF lorazepam 1 mg tablet 0.5 mg PO BEDTIME megestrol 40 mg tablet 40 mg PO DAILY ondansetron 8 mg tablet,disintegrating 8 mg PO TID PRN (Reason: Nausea And Vomiting) Combivent Respimat 20-100 mcg/actuation mist 1 puff inhalation Q4H PRN (Reason: wheezing) trazodone 50 mg tablet 25 mg PO BEDTIME PRN (Reason: Sleep) clopidogrel 75 mg tablet 75 mg PO DAILY zolpidem 5 mg tablet 5 mg PO DAILY PRN (Reason: insomnia) loratadine 10 mg tablet 10 mg PO DAILY Held naproxen 500 mg tablet 500 mg PO BID Hold Instructions: take as needed, limit if possible Discontinued atorvastatin 20 mg tablet 20 mg PO BEDTIME lisinopril 10 mg tablet 10 mg PO DAILY Discharge Orders: Discharge Order (Routine); Ordered 09/21/23 Ordered By: Tara Jackson Activity on Discharge: As tolerated Stand Alone Forms: Patient Portal Discharge page Care Plan Goals: see below Health Concerns: hypoxia due to pneumonia and underlying lung cancer anemia - likely due to chronic disease Plan of Treatment: augmentin was sent to the pharmacy by the ED provider - take only 5 days of the antibiotic Call your oncologist and let them know you were diagnosed with pneumonia decrease dose of lisinopril to 5 mg daily - call to schedule a follow up appointment with your PCP Return for new or worsening symptoms Assessment: see discharge summary Patient Instructions: Community Acquired Pneumonia (ED)
--- NOTE | 2023-09-21 10:41 | MHC.CM.PN ---
PT TO DC HOME TODAY WITH NO SERVICES FAMILY TO TRANSPORT
[2023-09-21 12:00] VITALS: PULSE 97; RESP 20; TEMP 36.4
== END 2023-09-21 12:05 | disposition home or self-care (01) | DRG 189 ==
LOC: HO.ED 09-19 01:58 → HO.EDOVER 09-19 02:40 → HO.IMC 09-19 17:29
PROVIDERS: Physician Assistant; Admitting Provider Internal Medicine; Emergency Provider Emergency Medicine Emergency Medical Services; PCP Internal Medicine; Visit Provider Physician Assistant Medical
DX: J96.01 Acute respiratory failure with hypoxia (principal); C34.90 Malignant neoplasm of unspecified part of unspecified bronchus or lung; J45.909 Unspecified asthma, uncomplicated; D63.1 Anemia in chronic kidney disease; F41.9 Anxiety disorder, unspecified; I10 Essential (primary) hypertension; Z20.822 Contact with and (suspected) exposure to COVID-19; Z79.02 Long term (current) use of antithrombotics/antiplatelets; Z79.52 Long term (current) use of systemic steroids; Z79.899 Other long term (current) drug therapy
CPT/HCPCS: 36415; 71045; 71275; 80048; 80053; 83605; 83690; 83880; 85025; 85610; 85730; 87040; 87502; 87635; 92610; 93005; 94640; 99285; J0295; J1644; J2930; Q9967

== ENCOUNTER → 2023-09-18 17:55 | Outpatient (BNV) | payer MEDICARE, SELFPAY | PROVIDERS: Admitting Provider Internal Medicine; Emergency Provider Emergency Medicine Emergency Medical Services; PCP Internal Medicine; Visit Provider Internal Medicine Cardiovascular Disease | DX: R06.00 Dyspnea, unspecified (principal) | CPT/HCPCS: 93010 ==

== ENCOUNTER → 2023-09-19 02:34 | Outpatient (BNV) | payer MEDICARE, SELFPAY | PROVIDERS: Admitting Provider Internal Medicine; Emergency Provider Emergency Medicine Emergency Medical Services; Visit Provider Internal Medicine | DX: J69.0 Pneumonitis due to inhalation of food and vomit (principal); R09.02 Hypoxemia; I10 Essential (primary) hypertension | CPT/HCPCS: 99223; 99232; 99239; 99499 ==

== ENCOUNTER 2024-02-17 09:19 | Inpatient (IN) | payer MEDICARE, SELFPAY ==
[2024-02-17] VITALS (8 sets, daily range): BP systolic 92–129; BP diastolic 57–66; PULSE 90–106; RESP 14–24; TEMP 36.2–36.6; O2SAT 89–98; BMI 21.1; BMI 23.1
--- NOTE | ~2024-02-17 | CT_ITS ---
EXAMINATION: CT ANGIOGRAM OF THE CHEST WITH AND WITHOUT CONTRAST (CT PULMONARY ANGIOGRAM FOR PE) CLINICAL INFORMATION: Reason for Exam dyspnea hx of lung cancer COMPARISON: CT pulmonary angiogram on 09/18/2023 TECHNIQUE: Prior to contrast administration, noncontrast localization images were obtained. Subsequently, multidetector volumetric imaging was performed from the thoracic inlet to below the diaphragms following the administration of 65 mL Omnipaque 350 intravenous contrast. No contrast reaction reported Sagittal, coronal, and MIP oblique sagittal reformatted images were obtained on the CT workstation, uploaded to PACS, and reviewed. This CT examination was performed using dose optimization techniques as appropriate, variously including the following: *Automated exposure control *Adjustment of mA and/or kV according to patient size (this includes techniques or standardized protocols for targeted exams where dose is matched to indication/reason for exam; i.e. extremities or head) *Use of iterative reconstruction technique Total exam dose-length product 155 mGy-cm FINDINGS: PULMONARY ARTERIES: The main pulmonary arteries, lobar and segmental arterial branches show adequate enhancement without filling defects. Main pulmonary trunk measures 376 Hounsfield units in mean attenuation. LUNGS: Extensive groundglass and reticular interstitial densities producing crazy paving are seen in bilateral lungs. Emphysema is present in the bilateral upper lobes. Airspace disease is seen along the medial and posterior border of right lower lobe. Mass like density measuring 3.3 cm in AP diameter, 2.9 cm in width, 5.2 cm in vertical height (previously 4.0 x 5.6 x 7.3 cm) is seen at the medial border of right lower lobe superior segment. PLEURA: No pleural effusion or pneumothorax is seen. PERICARDIUM: No pericardial effusion is seen. MEDIASTINUM AND ANIBAL: No abnormally enlarged mediastinal or hilar lymph nodes are seen. TRACHEOBRONCHIAL TREE: Trachea and bilateral mainstem bronchi are patent. THORACIC AORTA: The thoracic aorta is normal in size and smoothly patent. CORONARY ARTERY CALCIFICATIONS: Absent CHEST WALL AND LOWER NECK: Right upper chest subcutaneous [id number] is seen with catheter passing through the right internal jugular vein into superior vena cava. The subcutaneous and muscular chest wall are intact with no focal lesion. No abnormal mass lesion could be seen in the visualized lower neck. BONES: No fracture or dislocation. No focal bone lesion diagnostic of metastatic disease could be seen in the thorax. VISUALIZED UPPER ABDOMEN: Bilateral adrenal glands are not enlarged. Simple cysts are seen measuring 1.7 cm in diameter in left hepatic lobe segment 3, 0.7 cm in diameter in left hepatic lobe segment IVb at CT/CT angio chest PE protocol IMPRESSION: 1. Unchanged No evidence of pulmonary embolism. 2. Interval development of Extensive groundglass and reticular interstitial densities producing crazy paving in bilateral lungs, could be compatible with widespread atypical pneumonia including acute viral pneumonia. 3. Interval decrease in size of the lung mass lesion at the medial border of right lower lobe superior segment. 4. Emphysema is present in the bilateral upper lobes. 5. Unchanged left hepatic lobe simple cysts. Fleischner guidelines were followed. VTE: negative
--- NOTE | 2024-02-17 09:33 | ECG_ITS ---
Test Reason : DYSPNEA Blood Pressure : / mmHG Vent. Rate : 087 BPM Atrial Rate : 087 BPM P-R Int : 140 ms QRS Dur : 078 ms QT Int : 376 ms P-R-T Axes : 050 061 054 degrees QTc Int : 452 ms Normal sinus rhythm Normal ECG When compared with ECG of 18-SEP-2023 18:15, No significant change was found Referred By: Gisele Boone Electronically Signed By:ANJANA LYNN MD
--- NOTE | 2024-02-17 09:48 | ED.SOB ---
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 Using INH and nebs without relief. She is not on steroids. She came today as the pain and breathing got worse. MD elicited complaint: shortness of breath Pertinent past history: asthma, pneumonia and other (lung cancer) Onset (ago): week(s) (2) Timing: progressively worsening Severity: moderate Exacerbating factors: exertion and coughing Relieving factors: rest and bronchodilators Associated symptoms: chest pain, cough, wheezing and sputum production Treatment prior to arrival: bronchodilator Related Data Home Medications ?Medication ?Instructions ?Recorded ?Confirmed clopidogrel 75 mg tablet 75 mg PO DAILY 09/19/23 09/19/23 ipratropium 20 mcg-albuterol 100 1 puff inhalation Q4H PRN wheezing 09/19/23 09/19/23 mcg/actuation mist for inhalation (Combivent Respimat) loratadine 10 mg tablet 10 mg PO DAILY 09/19/23 09/19/23 lorazepam 1 mg tablet 0.5 mg PO BEDTIME 09/19/23 09/19/23 megestrol 40 mg tablet 40 mg PO DAILY 09/19/23 09/19/23 naproxen 500 mg tablet 500 mg PO BID 09/19/23 09/19/23 ondansetron 8 mg disintegrating 8 mg PO TID PRN Nausea And Vomiting 09/19/23 09/19/23 tablet trazodone 50 mg tablet 25 mg PO BEDTIME PRN Sleep 09/19/23 09/19/23 zolpidem 5 mg tablet 5 mg PO DAILY PRN insomnia 09/19/23 09/19/23 Previous Rx's ?Medication ?Instructions ?Recorded prednisone 20 mg tablet 40 mg (2 x 20 mg) PO DAILY #10 tabs 11/13/20 amoxicillin 875 mg-potassium 1 tab PO BID #13 tabs 09/19/23 clavulanate 125 mg tablet benzonatate 100 mg capsule 100 mg PO TID PRN cough #14 caps 09/21/23 lisinopril 5 mg tablet 5 mg PO DAILY 30 days #30 tabs 09/21/23 Allergies Allergy/AdvReac Type Severity Reaction Status Date / Time aspirin [Aspirin] Allergy Unknown HEART Verified 02/17/24 09:27 PALPITATIONS Review of Systems Review of Systems: Constitutional : No Fever, No Chills ENT/Mouth : No Hoarseness, No sore throat, No Rhinorrhea Eyes: No Redness, No Discharge, No Vision Changes Cardiovascular : pos Chest Pain, positive SOB, positive Dyspnea on Exertion, No Edema Respiratory : positive Cough, pos Sputum, positive Wheezing, Gastrointestinal : No Nausea, No Vomiting, No Diarrhea, No abdominal Pain Genitourinary : No Dysuria, No Hematuria Musculoskeletal : No joint pain, No Myalgias Skin : No rash Neuro : No Weakness, No Numbness, No Headache Psych : No anxiety, depression All other systems reviewed and are negative [facility] Past Medical History Attestation statement: The following information was validated with the patient. Source: old records reviewed Medical History (Updated 02/17/24 @ 15:08 by Gisele Boone DO) Lung cancer Hypercholesteremia Hypertension Asthma Social History Social History Household Members: Children Housing: Apartment Do you presently have visiting nurse or other home services: No Patient Tobacco Use Status: Tobacco use Unknown Use of substances other than those prescribed or required for medical reasons: No Advance Directives: No Advance Directives Information Provided: No Do you have a plan to hurt others: No Plan service: No Physical Exam Vital Signs: Vital Signs: Last Vital Signs Temp 98 F 02/17/24 09:45 Pulse 93 02/17/24 14:13 Resp 14 02/17/24 14:13 BP 99/66 02/17/24 14:13 Pulse Ox 95 02/17/24 14:13 O2 Del Method Nasal Cannula 02/17/24 14:13 O2 Flow Rate 3 02/17/24 14:13 BMI result Body Mass Index 21.1 Appearance: Alert. Oriented X3. No acute distress. Eyes: Pupils equal, round and reactive to light. ENT: Pharynx normal. Neck: Normal inspection. Neck supple. CVS: Normal heart rate and rhythm. Pulses normal. Respiratory: No respiratory distress. Breath sounds exp wheezes noted upper lobes, very diminished RLL. Abdomen: Soft and nontender. Skin: Skin warm and dry. pale skin color. Normal skin turgor. Extremities: No lower extremity edema. No calf ttp Neuro: Oriented X 3. No motor deficit. No sensory deficit. Course Course Course Narrative: hypoxic down to 89% on 2L now 95% Medications Administered Discontinued Medications Generic Name Dose Route Start Last Admin Trade Name Calderon PRN Reason Stop Dose Admin Albuterol/Ipratropium 3 ml 02/17/24 09:48 02/17/24 09:57 Albuterol/Iprat 2.5/0.5mg 3 Ml Ampul.Neb INHALE 02/17/24 09:49 3 ml ONCE ONE Administration Ceftriaxone Sodium 1 gm/ 50 mls @ 100 mls/hr 02/17/24 09:53 02/17/24 11:52 Sodium Chloride IV 02/17/24 10:22 Infused ONCE ONE Infusion Sodium Chloride 1,000 mls @ 999 mls/hr 02/17/24 10:00 02/17/24 12:22 Ns IV 02/17/24 11:00 Infused .Q1H1M ONE Infusion Iohexol 100 ml 02/17/24 13:44 02/17/24 13:44 Iohexol 350 Mg/Ml 100 Ml Infus..Btl IV 02/17/24 13:45 65 ml ONCE ONE Administration Methylprednisolone Sodium Succinate 60 mg 02/17/24 09:33 02/17/24 10:28 Methylprednisolone Sod Succ 125 Mg/2 Ml Vial IVPUSH 02/17/24 09:34 60 mg ONCE ONE Administration Medical Decision Making Medical Decision Making [facility] Narrative: 68 yo female with PMH of R sided lung cancer, asthma, HTN, HLD care received at [facility] here with 2 days of worsening dyspnea and sputum production wheezing at this time will need labs, cultures, CTA for PE, IV ceftriaxone, steroids, nebs. review of [facility] notes looks like she completed chemo x 2 cycles and is on immunotherapy, s/p radiation as well Differential Diagnosis Differential Diagnoses: The differential diagnosis associated with the presentation includes COPD, asthma, VTE, mass, pneumonia Admission/Observation Consideration of admission/observation: Escalation of care including admission/observation considered admit for hypoxia Consult Healthcare Provider Management of the patient was discussed with: Hospitalist (will admit) Lab Data MDM Lab Attestation statement: I reviewed the patient's lab results. 02/17/24 10:18 02/17/24 10:18 Labs: Lab Results 02/17/24 02/17/24 02/17/24 Range/Units 10:17 10:18 10:27 WBC 8.2 (4.8-10.8) X10*3/uL RBC 3.40 L (4.20-5.50) X10*6/uL Hgb 9.9 L (12.0-16.0) g/dl Hct 30.6 L (37.0-47.0) % MCV 90.0 (80.0-98.0) fL MCH 29.1 (27.0-33.0) pg MCHC 32.4 (31.0-35.0) g/dl RDW 15.6 (11.0-16.0) % Plt Count 425 H D (160-400) X10*3/uL MPV 8.7 L (9.4-12.3) fL Immature Gran % (Auto) 0.5 H (0.0-0.4) % Neut % (Auto) 80.5 H (45-73) % Lymph % (Auto) 10.9 L (20-40) % [place] % (Auto) 7.0 (2-11) % Eos % (Auto) 0.7 (0-4) % Baso % (Auto) 0.4 (0-2) % Lymph # (Auto) 0.9 L (1.2-4.9) X10*3/uL [place] # (Auto) 0.6 (0.1-1.2) X10*3/uL Eos # (Auto) 0.1 (0.0-0.4) X10*3/uL Baso # (Auto) 0.0 (0.0-0.2) X10*3/uL Abs Immat Gran (auto) 0.04 H (0.00-0.03) X10*3/uL Absolute Neuts (auto) 6.6 (2.0-8.3) x10*3/uL Absolute Nucleated RBC 0.000 (0.0-0.012) X10*3/uL Nucleated RBC % (auto) 0.0 (0.0-0.2) /100WBC PT 16.2 H D (11.1-13.3) SEC INR 1.3 H (0.9-1.1) APTT 28.3 (26.0-36.8) SEC VBG pH 7.39 (7.32-7.43) VBG pCO2 35 mmHg VBG pO2 45 mmHg VBG HCO3 21 L (22-26) mmol/L VBG O2 Saturation 63.0 % VBG Base Excess -2.5 mmol/L Sodium 135 (135-145) mmol/L Potassium 3.9 (3.3-5.1) mmol/L Chloride 103 (96-108) mmol/L Carbon Dioxide 22 (22-29) mmol/L Anion Gap 14 (12-20) BUN 9 (9-16) mg/dL Creatinine 0.75 (0.5-1.4) mg/dL Estim Creat Clear Calc 60.2 Estimated GFR > 60 Random Glucose 132 H (60-115) mg/dL Lactic Acid 2.3 H* (0.5-2.0) mmol/L Lactic Acid F/U @ 2Hr (0.5-2.0) mmol/L Calcium 9.4 (8.4-10.2) mg/dL Magnesium 2.1 (1.6-2.6) mg/dL Total Bilirubin 0.3 (0.0-1.0) mg/dL Direct Bilirubin 0.2 (0.0-0.5) mg/dL AST 16 (5-31) U/L ALT 17 (0-31) U/L Alkaline Phosphatase 86 (39-117) U/L Troponin I High Sens < 2.7 (<3.5-17.0) ng/L B-Natriuretic Peptide < 10 (<100) pg/mL Total Protein 7.3 (6.5-8.0) g/dL Albumin 3.2 L (3.5-5.0) g/dL Urine Color Urine Appearance Urine pH (5.0-9.0) Ur Specific [place] (1.005-1.025) Urine Protein (Neg-Trace) mg/dL Urine Glucose (UA) (Negative) mg/dL Urine Ketones (Negative) mg/dL Urine Blood (Negative) Urine Nitrite (Negative) Ur Leukocyte Esterase (Negative) Influenza Type A (PCR) (Negative) Influenza Type B (PCR) (Negative) RSV RNA Qual (PCR) (Negative) SARS-CoV-2 RNA (RT-PCR) (Negative) 02/17/24 02/17/24 02/17/24 Range/Units 11:01 13:19 14:03 WBC (4.8-10.8) X10*3/uL RBC (4.20-5.50) X10*6/uL Hgb (12.0-16.0) g/dl Hct (37.0-47.0) % MCV (80.0-98.0) fL MCH (27.0-33.0) pg MCHC (31.0-35.0) g/dl RDW (11.0-16.0) % Plt Count (160-400) X10*3/uL MPV (9.4-12.3) fL Immature Gran % (Auto) (0.0-0.4) % Neut % (Auto) (45-73) % Lymph % (Auto) (20-40) % [place] % (Auto) (2-11) % Eos % (Auto) (0-4) % Baso % (Auto) (0-2) % Lymph # (Auto) (1.2-4.9) X10*3/uL [place] # (Auto) (0.1-1.2) X10*3/uL Eos # (Auto) (0.0-0.4) X10*3/uL Baso # (Auto) (0.0-0.2) X10*3/uL Abs Immat Gran (auto) (0.00-0.03) X10*3/uL Absolute Neuts (auto) (2.0-8.3) x10*3/uL Absolute Nucleated RBC (0.0-0.012) X10*3/uL Nucleated RBC % (auto) (0.0-0.2) /100WBC PT (11.1-13.3) SEC INR (0.9-1.1) APTT (26.0-36.8) SEC VBG pH (7.32-7.43) VBG pCO2 mmHg VBG pO2 mmHg VBG HCO3 (22-26) mmol/L VBG O2 Saturation % VBG Base Excess mmol/L Sodium (135-145) mmol/L Potassium (3.3-5.1) mmol/L Chloride (96-108) mmol/L Carbon Dioxide (22-29) mmol/L Anion Gap (12-20) BUN (9-16) mg/dL Creatinine (0.5-1.4) mg/dL Estim Creat Clear Calc Estimated GFR Random Glucose (60-115) mg/dL Lactic Acid (0.5-2.0) mmol/L Lactic Acid F/U @ 2Hr 1.9 (0.5-2.0) mmol/L Calcium (8.4-10.2) mg/dL Magnesium (1.6-2.6) mg/dL Total Bilirubin (0.0-1.0) mg/dL Direct Bilirubin (0.0-0.5) mg/dL AST (5-31) U/L ALT (0-31) U/L Alkaline Phosphatase (39-117) U/L Troponin I High Sens (<3.5-17.0) ng/L B-Natriuretic Peptide (<100) pg/mL Total Protein (6.5-8.0) g/dL Albumin (3.5-5.0) g/dL Urine Color Yellow Urine Appearance Clear Urine pH 7.5 (5.0-9.0) Ur Specific [place] >= 1.030 H (1.005-1.025) Urine Protein Negative (Neg-Trace) mg/dL Urine Glucose (UA) Negative (Negative) mg/dL Urine Ketones Negative (Negative) mg/dL Urine Blood Negative (Negative) Urine Nitrite Negative (Negative) Ur Leukocyte Esterase Negative (Negative) Influenza Type A (PCR) NEGATIVE (Negative) Influenza Type B (PCR) NEGATIVE (Negative) RSV RNA Qual (PCR) NEGATIVE (Negative) SARS-CoV-2 RNA (RT-PCR) NEGATIVE (Negative) Independent Interpretation I performed an independent interpretation of an: EKG and CT Scan (no PE, opacities both lungs) Interpretation: Rate: 87 Rhythm: NSR [place]: normal Normal P waves. Normal DENISE. Normal QRS complex. ST T wave : no BIANCA, normal qTC: 452 prior studies: no acute ischemia The study has been interpreted contemporaneously by me. . Radiology Impression Discussion of test interpretation with radiology: I have reviewed the radiologist's reading. Independent Historian Clinical information obtained from an independent historian. History obtained from or confirmed by: Other (family) External Record Review External record reviewed: Outpatient record Discharge Plan Discharge Clinical Impression: Asthma with exacerbation, Pneumonia, Hypoxia Patient Disposition: Admitted As Inpatient Prescriptions: No Action prednisone 20 mg tablet 40 mg PO DAILY Qty: 10 0RF amoxicillin-pot clavulanate 875-125 mg tablet 1 tab PO BID Qty: 13 0RF lorazepam 1 mg tablet 0.5 mg PO BEDTIME megestrol 40 mg tablet 40 mg PO DAILY ondansetron 8 mg tablet,disintegrating 8 mg PO TID PRN (Reason: Nausea And Vomiting) Combivent Respimat 20-100 mcg/actuation mist 1 puff inhalation Q4H PRN (Reason: wheezing) trazodone 50 mg tablet 25 mg PO BEDTIME PRN (Reason: Sleep) clopidogrel 75 mg tablet 75 mg PO DAILY zolpidem 5 mg tablet 5 mg PO DAILY PRN (Reason: insomnia) loratadine 10 mg tablet 10 mg PO DAILY naproxen 500 mg tablet 500 mg PO BID Hold Instructions: take as needed, limit if possible lisinopril 5 mg tablet 5 mg PO DAILY 30 Days Qty: 30 0RF benzonatate 100 mg capsule 100 mg PO TID PRN (Reason: cough) Qty: 14 0RF Print Language: Sami
[2024-02-17] MEDS: Albuterol/Iprat 2.5/0.5MG 3 ML AMPUL.NEB INHALE ×2 (09:57→20:41)
[2024-02-17] MEDS: methylPREDNISolone Sod Succ 125 MG/2 ML VIAL 60 MG IVPUSH (10:28)
[2024-02-17 10:30] LABS: MANUAL DIFF FLAG NO
[2024-02-17] MEDS: 0.9 % Sodium Chloride 1,000 ML 999 ML IV (10:33)
[2024-02-17 10:34] LABS: Basophils Percent Auto 0.4 % (0-2); Eosinophils Absolute Auto 0.1 X10*3/uL (0.0-0.4); Eosinophils Percent Auto 0.7 % (0-4); Hematocrit 30.6 % (37.0-47.0); Hemoglobin 9.9 g/dl (12.0-16.0); Imm Gran Abs Auto 0.04 X10*3/uL (0.00-0.03); Imm Gran Pct Auto 0.5 % (0.0-0.4); Lymphocytes Absolute Auto 0.9 X10*3/uL (1.2-4.9); Lymphocytes Percent Auto 10.9 % (20-40); Mean Corpuscular HGB Conc 32.4 g/dl (31.0-35.0); Mean Corpuscular Hemoglobin 29.1 pg (27.0-33.0); Mean Platelet Volume 8.7 fL (9.4-12.3); Monocytes Absolute Auto 0.6 X10*3/uL (0.1-1.2); Neutrophils Absolute Auto 6.6 x10*3/uL (2.0-8.3); Neutrophils Percent Auto 80.5 % (45-73); Platelet Count 425 X10*3/uL (160-400); Red Cell Distribution Width 15.6 % (11.0-16.0); White Blood Count 8.2 X10*3/uL (4.8-10.8)
[2024-02-17 10:38] LABS: INTERNATIONAL NORM RATIO 1.3 (0.9-1.1); Prothrombin Time 16.2 SEC (11.1-13.3)
--- NOTE | 2024-02-17 10:38 | PC.NURSE ---
Pt arrives to ED with complaints of SOB and cough x2 weeks. A&Ox3, VSS and afebrile. Pt is SSO and board filler used. States she has a Hx Asthma and uses inhalers at home. Her cough has been giving her body pains, mainly in her back. Seen by [facility] of [facility] treatment and Pt medicated per OCT. Labs and first set of blood culture drawn. Once 2nd set acquired will hang prescribed Abx. Pt is resting comfortably in bed with call be in reach.
[2024-02-17 10:41] LABS: Partial Thromboplastin Time 28.3 SEC (26.0-36.8)
[2024-02-17 10:50] LABS: VBG Base Excess -2.5 mmol/L; VBG HCO3 21 mmol/L (22-26); VBG pCO2 35 mmHg; VBG pH 7.39 (7.32-7.43); VBG pO2 45 mmHg
[2024-02-17 10:50] LABS: Venous Blood Gas Refer to POC result
[2024-02-17 11:10] LABS: B Type Natriuretic Peptide < 10 pg/mL (<100)
[2024-02-17] MEDS: cefTRIAXone sodium 1 GM in 0.9 % Sodium Chloride 50 ML IV (11:11)
[2024-02-17 11:16] LABS: Lactic Acid 2.3 mmol/L (0.5-2.0); Troponin-I High Sensitivity < 2.7 ng/L (<3.5-17.0)
[2024-02-17 11:50] LABS: Influenza A PCR NEGATIVE (Negative); Influenza B PCR NEGATIVE (Negative); Resp Syncy Virus RNA Qual PCR NEGATIVE (Negative); SARS COV2 PCR INHOUSE NEGATIVE (Negative)
[2024-02-17 12:29] LABS: Reflex Lactate? Lactic Acid Added
[2024-02-17 13:12] LABS: Alanine Aminotransferase 17 U/L (0-31); Albumin Level 3.2 g/dL (3.5-5.0); Alkaline Phosphatase 86 U/L (39-117); Anion Gap 14 (12-20); Aspartate Amino Transferase 16 U/L (5-31); Bilirubin Direct 0.2 mg/dL (0.0-0.5); Bilirubin Total 0.3 mg/dL (0.0-1.0); Blood Urea Nitrogen 9 mg/dL (9-16); Calcium 9.4 mg/dL (8.4-10.2); Carbon Dioxide 22 mmol/L (22-29); Chloride 103 mmol/L (96-108); Creatinine Clr Calc Pharmacy 60.2; Estimated Glomerular Filt Rate > 60; Glucose Random 132 mg/dL (60-115); Magnesium 2.1 mg/dL (1.6-2.6); Potassium 3.9 mmol/L (3.3-5.1); Sodium 135 mmol/L (135-145); Total Protein 7.3 g/dL (6.5-8.0)
[2024-02-17 13:43] LABS: ~Lactic Acid-LAB USE ONLY 1.9 mmol/L (0.5-2.0)
[2024-02-17] MEDS: iohexoL 350 MG/ML 100 ML INFUS..BTL IV (13:44)
--- NOTE | 2024-02-17 14:14 | PC.NURSE ---
Report from fiberglass grinder stating Pt requesting pain medication and SOB. VSS and Pt is sating at 85% on 2L O2. Pt reports she cannot feel the O2 so increased to 3L and Pt stated this was helpful. Pt verbally denies pain at this time. Family at bedside.
[2024-02-17 14:54] LABS: Appearance Urine Clear; Color Urine Yellow; Glucose Urine UA Negative (Negative); Leukocyte Esterase Urine Negative (Negative); Nitrite Urine Negative (Negative); PH 7.5 (5.0-9.0); Specific Gravity - Urine >= 1.030 (1.005-1.025); Urine Blood Negative (Negative); Urine Ketones Negative (Negative); Urine Protein Negative (Neg-Trace)
[2024-02-17] MEDS: 0.9 % Sodium Chloride 1,000 ML 80 ML IVCONT (15:31)
[2024-02-17] MEDS: Azithromycin 500 MG in 0.9 % Sodium Chloride 250 ML 125 MG IV (15:31)
--- NOTE | 2024-02-17 16:36 | PHA.MEDREC ---
Pharmacy Consult ? Medication Reconciliation Pharmacy has completed the medication reconciliation. Confirmed mediations with PT and help of water taxi boat mate. Patient states she is on Clopidogrel 75 mg daily and she took her last dose at home yesterday. She stated she was taking Oxycodone 5mg 1 BID, her last at home dose was today in the morning and she said it was her last pill and went on saying Doctor would not prescribe her any more for reasons she was not sure for and she states she wants to continue using it for her pain.
--- NOTE | 2024-02-17 16:42 | PM.IMHP ---
History of Present Illness Date of Service: 02/17/24 Attending physician on admission: Emigdio [facility] Chief Complaint: cough,sob 68-year-old female with history of stage III squamous cell carcinoma, hyperlipidemia, hypertension, asthma/COPD overlap presented to the ED earlier today for evaluation of productive cough with white sputum, nasal congestion, shortness of breath, and pleuritic chest pain ongoing for 3 days. Reports her son is sick at home with similar symptoms. She also reports burning epigastric pain with nausea and vomiting. No fevers, chills, st, diarrhea, wheezing, lightheadedness, or chest pressure. She follows with Dr. García at [facility] at [facility] and completed 2 rounds of paclitaxel/carboplatin on 01/01 stopped due to weight loss and recently started immunotherapy with durvalumab on 01/26 weekly. Reports tolerating this well. On arrival, hypoxic to the mid 80s and now maintaining oximetry 95% on 3L. She was also mildly tachycardic and tachypneic. No leukocytosis. Renal function baseline, electrolyte levels normal. Initial lactate 2.3, repeat 1.9. Hepatic function within normal limits. Troponin undetectable, BNP undetectable. Urinalysis unremarkable. Negative for COVID, RSV, influenza. CTA chest negative for PE but shows interval development of extensive ground-glass and reticular interstitial densities bilateral lungs likely compatible with widespread atypical pneumonia including acute viral pneumonia. There is also interval decrease in size of lung mass lesion at the medial border of the right lower lobe with emphysema present in the bilateral upper lobes. In the ED, has received DuoNeb and methylprednisolone. She has also been started on IV Zithromax and Rocephin and given IV NS. Review of Systems Review of Systems: Yes all other systems are reviewed and are negative [facility] Medical History Lung cancer Hypercholesteremia Hypertension Asthma Social History Household Members: Children Housing: Apartment Do you presently have visiting nurse or other home services: No Patient Tobacco Use Status: Former Tobacco user Tobacco use type: Cigarette Smoked in Last 30 Days: No Patient Interested in Nicotine Replacement: No Patient Given Instructions on How to Stop Smoking: No Second Hand Smoke Exposure: No Use of substances other than those prescribed or required for medical reasons: No Currently Displaying Signs/Symptoms of Drug Intoxication Withdrawal: No Have you been hit, kicked, punched, or otherwise hurt by someone within the past year? If so, by whom?: No Do you feel safe in your current relationship?: No Current Relationship Is there a partner from a previous relationship who is making you feel unsafe now?: No Are you made to feel afraid or neglected: No Advance Directives: No Advance Directives Information Provided: No Do you have a plan to hurt others: No Plan Recently lost weight without trying: Yes How much weight loss: 2-13 pounds Eating poorly because of decreased appetite: Yes Nutrition screen score: 4 Nutrition Risks: No Nutritional Risk Patient : No : No Poor oral hygiene: No service: No Meds Allergies Allergy/AdvReac Type Severity Reaction Status Date / Time aspirin [Aspirin] Allergy Unknown HEART Verified 02/17/24 09:27 PALPITATIONS Active Medications: Current Medications Acetaminophen (Acetaminophen 325 Mg Tablet) 650 mg PO Q6H PRN PRN Reason: Pain, Mild (Pain Scale 1-3), fever or headache Calcium Carbonate (Calcium Carbonate 750 Mg Tab.Chew) 750 mg PO Q4H PRN PRN Reason: Heartburn Enoxaparin Sodium (Enoxaparin Sodium 40 Mg/0.4 Ml Syringe) 40 mg SUBCUT Q24H MEGAN Piperacillin Sod/Tazobactam (Sod 4.5 gm/ Sodium Chloride) 100 mls @ 200 mls/hr IV Q6H MEGAN Vancomycin HCl 1,250 mg/ (Sodium Chloride) 250 mls @ 166.667 mls/hr IV ONCE ONE Stop: 02/17/24 19:29 Magnesium Hydroxide (Milk Of Magnesia 30 Ml Oral.Susp) 30 ml PO DAILY PRN PRN Reason: Constipation Melatonin (Melatonin 3 Mg Tablet) 6 mg PO BEDTIME PRN PRN Reason: Insomnia Pharmacy Consult (Consult Rx Vancomycin Dosing) 1 each MISCELLANE DAILY PRN PRN Reason: Consult order Sodium Chloride (0.9 % Sodium Chloride Flush 3 Ml Syringe) 3 ml IVFLUSH QSHIFT [facility] Home Medications ?Medication ?Instructions ?Recorded ?Confirmed ?Last Taken ?Type clopidogrel 75 mg tablet 75 mg PO DAILY 09/19/23 02/17/24 02/16/24 History ipratropium 20 mcg-albuterol 100 1 puff inhalation Q4H PRN wheezing 01/25/24 06/24/24 06/23/24 History mcg/actuation mist for inhalation (Combivent Respimat) loratadine 10 mg tablet 10 mg PO DAILY 09/19/23 02/17/24 02/16/24 History lorazepam 1 mg tablet 1 mg PO BID 09/19/23 02/17/24 02/16/24 History megestrol 40 mg tablet 40 mg PO DAILY 09/19/23 02/17/24 02/16/24 History ondansetron 8 mg disintegrating 8 mg PO TID PRN Nausea And Vomiting 09/19/23 02/17/24 02/16/24 History tablet trazodone 50 mg tablet 25 mg PO BEDTIME PRN Sleep 09/19/23 02/17/24 02/16/24 History zolpidem 5 mg tablet 5 mg PO DAILY PRN insomnia 09/19/23 02/17/24 02/16/24 History albuterol sulfate 90 mcg/actuation 2 puff inhalation Q4H PRN wheezing 02/17/24 02/17/24 02/16/24 History aerosol inhaler atorvastatin 20 mg tablet 10 mg PO BID 02/17/24 02/17/24 02/16/24 History lisinopril 10 mg tablet 10 mg PO DAILY 02/17/24 02/17/24 02/16/24 History omeprazole 20 mg capsule,delayed 20 mg PO DAILY 02/17/24 02/17/24 02/16/24 History release oxycodone 5 mg tablet 5 mg PO BID 02/17/24 02/17/24 02/17/24 History sennosides 8.6 mg-docusate sodium 2 tab PO DAILY 02/17/24 02/17/24 02/16/24 History 50 mg tablet (Stimulant Laxative Plus) Physical Exam Vital Signs and Narrative: Vital Signs: Last Vital Signs Temp 98 F 02/17/24 09:45 Pulse 93 02/17/24 14:13 Resp 14 02/17/24 14:13 BP 99/66 02/17/24 14:13 Pulse Ox 95 02/17/24 14:13 O2 Del Method Nasal Cannula 02/17/24 14:13 O2 Flow Rate 3 02/17/24 14:13 BMI result Body Mass Index 21.1 Constitutional - Awake and Alert, No apparent distress Eyes - PERRLA, EOMI Cardiovascular - S1S2, RRR, No edema Respiratory - Normal lung expansion, Normal respiratory effort, No respiratory distress, bilateral extensive wheezing Gastrointestinal - NT / ND; +BS; No rebound or guarding Extremities - no calf tenderness bilaterally, no swelling Skin - Warm/Dry Neurological - Alert & oriented x3, CN II-XII in tact, 5/5 strength BUE and BLE Psychological - Appropriate affect Results Labs 02/18/24 05:59 02/18/24 05:59 Labs: Laboratory Results - last 24 hr 02/17/24 02/17/24 02/17/24 10:17 10:18 10:27 MCV 90.0 MCH 29.1 MCHC 32.4 RDW 15.6 Plt Count 425 H D MPV 8.7 L Immature Gran % (Auto) 0.5 H Neut % (Auto) 80.5 H Lymph % (Auto) 10.9 L [place] % (Auto) 7.0 Eos % (Auto) 0.7 Baso % (Auto) 0.4 Lymph # (Auto) 0.9 L [place] # (Auto) 0.6 Eos # (Auto) 0.1 Baso # (Auto) 0.0 Abs Immat Gran (auto) 0.04 H Absolute Neuts (auto) 6.6 Absolute Nucleated RBC 0.000 Nucleated RBC % (auto) 0.0 PT 16.2 H D INR 1.3 H APTT 28.3 VBG pH 7.39 VBG pCO2 35 VBG pO2 45 VBG HCO3 21 L VBG O2 Saturation 63.0 VBG Base Excess -2.5 Anion Gap 14 Estim Creat Clear Calc 60.2 Estimated GFR > 60 Random Glucose 132 H Lactic Acid 2.3 H* Lactic Acid F/U @ 2Hr Calcium 9.4 Magnesium 2.1 Total Bilirubin 0.3 Direct Bilirubin 0.2 AST 16 ALT 17 Alkaline Phosphatase 86 Troponin I High Sens < 2.7 B-Natriuretic Peptide < 10 Total Protein 7.3 Albumin 3.2 L Urine Color Urine Appearance Urine pH Ur Specific [place] Urine Protein Urine Glucose (UA) Urine Ketones Urine Blood Urine Nitrite Ur Leukocyte Esterase Influenza Type A (PCR) Influenza Type B (PCR) RSV RNA Qual (PCR) SARS-CoV-2 RNA (RT-PCR) 02/17/24 02/17/24 02/17/24 11:01 13:19 14:03 MCV MCH MCHC RDW Plt Count MPV Immature Gran % (Auto) Neut % (Auto) Lymph % (Auto) [place] % (Auto) Eos % (Auto) Baso % (Auto) Lymph # (Auto) [place] # (Auto) Eos # (Auto) Baso # (Auto) Abs Immat Gran (auto) Absolute Neuts (auto) Absolute Nucleated RBC Nucleated RBC % (auto) PT INR APTT VBG pH VBG pCO2 VBG pO2 VBG HCO3 VBG O2 Saturation VBG Base Excess Anion Gap Estim Creat Clear Calc Estimated GFR Random Glucose Lactic Acid Lactic Acid F/U @ 2Hr 1.9 Calcium Magnesium Total Bilirubin Direct Bilirubin AST ALT Alkaline Phosphatase Troponin I High Sens B-Natriuretic Peptide Total Protein Albumin Urine Color Yellow Urine Appearance Clear Urine pH 7.5 Ur Specific [place] >= 1.030 H Urine Protein Negative Urine Glucose (UA) Negative Urine Ketones Negative Urine Blood Negative Urine Nitrite Negative Ur Leukocyte Esterase Negative Influenza Type A (PCR) NEGATIVE Influenza Type B (PCR) NEGATIVE RSV RNA Qual (PCR) NEGATIVE SARS-CoV-2 RNA (RT-PCR) NEGATIVE Imaging Radiologist's Impressions: Impressions Chest CTA 02/17/24 13:42 IMPRESSION: 1. Unchanged No evidence of pulmonary embolism. 2. Interval development of Extensive groundglass and reticular interstitial densities producing crazy paving in bilateral lungs, could be compatible with widespread atypical pneumonia including acute viral pneumonia. 3. Interval decrease in size of the lung mass lesion at the medial border of right lower lobe superior segment. 4. Emphysema is present in the bilateral upper lobes. 5. Unchanged left hepatic lobe simple cysts. Fleischner guidelines were followed. VTE: negative Assessment and Plan (1) Hypoxia: Status: Acute (2) Pneumonia: Qualifiers: Laterality: bilateral Lung location: unspecified part of lung Pneumonia type: due to unspecified organism Qualified Code(s): J18.9 - Pneumonia, unspecified organism Status: Acute (3) Asthma with exacerbation: Qualifiers: Asthma persistence: persistent Asthma severity: moderate Qualified Code(s): J45.41 - Moderate persistent asthma with (acute) exacerbation Status: Acute Plan 68-year-old female with history of stage III squamous cell carcinoma, hyperlipidemia, hypertension, asthma/COPD overlap admitted for bilateral pneumonia with acute hypoxemic respitatory failure in immunocompromised pt #Acute bilateral pneumonia with acute hypoxemic respiratory failure and severe sepsis -No leukocytosis but tachycardic and tachypneic with lactic acidosis (resolved with IVF). No other end organ damage. No septic shock -CTA chest negative for PE but shows interval development of extensive ground-glass and reticular interstitial densities bilateral lungs likely compatible with widespread atypical pneumonia including acute viral pneumonia -negative for covid/flu/rsv. Check RPP -given immunocompromised status, initiate iv zosyn and vanco (initiated 02/16) -cehck legionella ag, strep pneumo ag, mrsa nasal swab, and sputum culture -guaifenesin prn -follow cbc/cultures -continue supplemental O2 to maintain oximetry 90-92%, wean as tolerated per protocol #Asthma/copd exacerbation -iv methylprednisolone 40mg bid -duonebs q4h/prn -abx as above #Stage III squamous cell carcinoma lung -follows with Dr. García at [facility] at [facility] and completed 2 rounds of paclitaxel/carboplatin on 01/01 stopped due to weight loss and recently started immunotherapy with durvalumab on 01/26 weekly -outpt follow up #HTN -blood pressures soft -continue lisinopril am #HLD -statin dvt prophylaxis- lovenox full code pt requires inpatient stay at least 2 midnights for management of bilateral pneumonia with acute hypoxemic respiratory failure and severe sepsis in immunocompromised patient requiring IV antibiotics and close monitoring of hemodynamics to monitor for and prevent decompensation Quality Stroke Does the patient have a stroke diagnosis?: No VTE Prior VTE?: No VTE Risk Level:: Medical - moderate - high VTE Device Contraindication: Treatment Not Indicated VTE Drug Contraindication: N/A - Med Ordered
[2024-02-17] MEDS: Pantoprazole Sodium 20 MG TABLET.DR PO (18:51)
[2024-02-17] MEDS: Enoxaparin Sodium 40 MG/0.4 ML SYRINGE SUBCUT (18:52)
[2024-02-17] MEDS: Piperacillin Sodium/Tazobactam 4.5 GM in 0.9 % Sodium Chloride 100 ML IV (19:16)
[2024-02-17] MEDS: traZODone HCL 25 MG HALFTAB PO (21:37)
[2024-02-17] MEDS: Acetaminophen 325 MG TABLET 650 MG PO (21:37)
[2024-02-17] MEDS: Melatonin 3 MG TABLET 6 MG PO (21:37)
[2024-02-17] MEDS: LORazepam 1 MG TABLET PO (21:37)
[2024-02-17] MEDS: Atorvastatin Calcium 10 MG TABLET PO (21:37)
[2024-02-17] MEDS: Zolpidem Tartrate 5 MG TABLET PO (21:37)
[2024-02-17] MEDS: methylPREDNISolone Sod Succ 40 MG/ML VIAL IVPUSH (21:38)
[2024-02-17] MEDS: 0.9 % Sodium Chloride Flush 3 ML SYRINGE IVFLUSH (21:38)
[2024-02-17] MEDS: vancomycin HCL 1,250 MG in 0.9 % Sodium Chloride 250 ML 166.67 MG IV (21:57)
--- NOTE | 2024-02-17 22:50 | PHA.PROG ---
Admission Date/Time: February 17, 2024 16:26 Indication: Weight in k.1 kg Serum Creatinine - Last 168 Hours 02/17/24 10:18 Creatinine 0.75 Estimated CrCl and GFR - Last 168 Hours 02/17/24 10:18 Estim Creat Clear Calc 60.2 Estimated GFR > 60 Vancomycin Loading Dose: 1,250mg Current Vancomycin Dosing Regimen: 500mg Q8H Vancomycin Monitoring using AUC goal of 400 - 600 range with trough as surrogate marker: 551, predicted trough 19.2 Date and Time for next Vancomycin Level to be drawn: 02/17 at 1600 Pharmacist Comments on Vancomycin Plan: Vancomycin dosing will take advantage of [employer] as a clinical decision support tool that uses Bayesian modeling to calculate individual patient's pharmacokinetic parameters and forecast the patient's drug concentration time course with the target goal AUC 24 range of 400 - 600 mg/L/hr.
[2024-02-18] VITALS (7 sets, daily range): BP systolic 104–123; BP diastolic 56–61; PULSE 80–95; RESP 14–22; TEMP 36.1–36.5; O2SAT 92–97
[2024-02-18] MEDS: Piperacillin Sodium/Tazobactam 4.5 GM in 0.9 % Sodium Chloride 100 ML IV ×4 (00:16→19:12)
[2024-02-18] MEDS: vancomycin HCL 500 MG in 0.9 % Sodium Chloride 100 ML 110 MG IV ×2 (05:30→14:27)
[2024-02-18 06:55] LABS: Basophils Percent Auto 0.1 % (0-2); Hematocrit 28.3 % (37.0-47.0); Hemoglobin 9.1 g/dl (12.0-16.0); Imm Gran Abs Auto 0.04 X10*3/uL (0.00-0.03); Imm Gran Pct Auto 0.5 % (0.0-0.4); Lymphocytes Absolute Auto 0.6 X10*3/uL (1.2-4.9); Lymphocytes Percent Auto 7.1 % (20-40); MANUAL DIFF FLAG SCAN; Mean Corpuscular HGB Conc 32.2 g/dl (31.0-35.0); Mean Corpuscular Hemoglobin 28.9 pg (27.0-33.0); Mean Corpuscular Volume 89.8 fL (80.0-98.0); Mean Platelet Volume 9.2 fL (9.4-12.3); Monocytes Absolute Auto 0.1 X10*3/uL (0.1-1.2); Monocytes Percent Auto 1.5 % (2-11); Neutrophils Absolute Auto 7.3 x10*3/uL (2.0-8.3); Neutrophils Percent Auto 90.8 % (45-73); Platelet Count 456 X10*3/uL (160-400); Red Blood Count 3.15 X10*6/uL (4.20-5.50); Red Cell Distribution Width 15.6 % (11.0-16.0); SCAN SMEAR FLAG 1; White Blood Count 8.1 X10*3/uL (4.8-10.8)
[2024-02-18 07:03] LABS: Anion Gap 12 (12-20); Blood Urea Nitrogen 11 mg/dL (9-16); Carbon Dioxide 22 mmol/L (22-29); Chloride 110 mmol/L (96-108); Creatinine Clr Calc Pharmacy 80.6; Estimated Glomerular Filt Rate > 60; Glucose Random 148 mg/dL (60-115); Potassium 4.3 mmol/L (3.3-5.1); Sodium 140 mmol/L (135-145)
[2024-02-18 07:24] LABS: SLIDE REVIEW VERIFIED
--- NOTE | 2024-02-18 07:35 | HO.PM.IMPN ---
Subjective Subjective Date of Service: 02/18/24 Interval History: f/u on PNA, sepsis, hypoxia interval history: breathing seems better, still on oxygen c/o diffuse bodyache Physical Exam Vital Signs: Vital Signs: Last Vital Signs Temp 96.9 F 02/18/24 06:59 Pulse 87 02/18/24 06:59 Resp 14 02/18/24 06:59 BP 104/56 L 02/18/24 06:59 Pulse Ox 94 02/18/24 06:59 O2 Del Method Nasal Cannula 02/18/24 06:59 O2 Flow Rate 2 02/18/24 06:59 BMI result Body Mass Index 23.1 General: AO X 3, no acute distress Resp: CTA bilateral CVS: S1,S2,RRR GI: +BS, NT, no distention Skin: No rash Neuro: motor grossly intact Psych: appropriate affect Objective Data Active Medications Acetaminophen (Acetaminophen 325 Mg Tablet) 650 mg PO Q6H PRN PRN Reason: Pain, Mild (Pain Scale 1-3), fever or headache Last Admin: 02/17/24 21:37 Dose: 650 mg Documented By: ROSIE Albuterol Sulfate (Albuterol Sulfate 90 Mcg 8 Gm Inhaler) 2 puff INHALE Q4H PRN PRN Reason: wheezing Albuterol/Ipratropium (Albuterol/Iprat 2.5/0.5mg 3 Ml Ampul.Neb) 3 ml INHALE RQ4H WHILE AWAKE [facility] Last Admin: 02/17/24 20:41 Dose: 3 ml Documented By: ELIZABETH Albuterol/Ipratropium (Albuterol/Iprat 2.5/0.5mg 3 Ml Ampul.Neb) 3 ml INHALE RQ4H WHILE AWAKE PRN PRN Reason: Pain, Severe (Pain Scale 7-10) Atorvastatin Calcium (Atorvastatin Calcium 10 Mg Tablet) 10 mg PO BID [facility] Last Admin: 02/17/24 21:37 Dose: 10 mg Documented By: ROSIE Calcium Carbonate (Calcium Carbonate 750 Mg Tab.Chew) 750 mg PO Q4H PRN PRN Reason: Heartburn Clopidogrel Bisulfate (Clopidogrel Bisulfate 75 Mg Tablet) 75 mg PO DAILY [facility] Enoxaparin Sodium (Enoxaparin Sodium 40 Mg/0.4 Ml Syringe) 40 mg SUBCUT Q24H [facility] Last Admin: 02/17/24 18:52 Dose: 40 mg Documented By: IVETT Guaifenesin (Guaifenesin 200 Mg/10 Ml 10 Ml Liquid) 10 ml PO Q4H PRN PRN Reason: Cough Piperacillin Sod/Tazobactam (Sod 4.5 gm/ Sodium Chloride) 100 mls @ 200 mls/hr IV Q6H [facility] Last Admin: 02/18/24 06:34 Dose: 200 mls/hr Documented By: ROSIE Vancomycin HCl 500 mg/ Sodium (Chloride) 110 mls @ 110 mls/hr IV Q8H [facility] Last Infusion: 02/18/24 06:35 Dose: Infused Documented By: ROSIE Lisinopril (Lisinopril 10 Mg Tablet) 10 mg PO DAILY [facility]; Protocol Loratadine (Loratadine 10 Mg Tablet) 10 mg PO DAILY [facility] Lorazepam (Lorazepam 1 Mg Tablet) 1 mg PO BID [facility] Last Admin: 02/17/24 21:37 Dose: 1 mg Documented By: ROSIE Magnesium Hydroxide (Milk Of Magnesia 30 Ml Oral.Susp) 30 ml PO DAILY PRN PRN Reason: Constipation Megestrol Acetate (Megestrol Acetate 20 Mg Tablet) 40 mg PO DAILY [facility] Melatonin (Melatonin 3 Mg Tablet) 6 mg PO BEDTIME PRN PRN Reason: Insomnia Last Admin: 02/17/24 21:37 Dose: 6 mg Documented By: ROSIE Methylprednisolone Sodium Succinate (Methylprednisolone Sod Succ 40 Mg/Ml Vial) 40 mg IVPUSH Q12H [facility] Last Admin: 02/17/24 21:38 Dose: 40 mg Documented By: ROSIE Ondansetron HCl (Ondansetron Hcl 4 Mg/2 Ml Vial) 4 mg IVPUSH Q8H PRN PRN Reason: Nausea and Vomiting Pantoprazole Sodium (Pantoprazole Sodium 20 Mg Tablet.Dr) 20 mg PO DAILY [facility] Last Admin: 02/17/24 18:51 Dose: 20 mg Documented By: IVETT Pharmacy Consult (Consult Rx Vancomycin Dosing) 1 each MISCELLANE DAILY PRN PRN Reason: Consult order Senna/Docusate Sodium (Sennosides/Docusate Sodium Tablet) 2 tab PO DAILY [facility] Sodium Chloride (0.9 % Sodium Chloride Flush 3 Ml Syringe) 3 ml IVFLUSH QSHIFT [facility] Last Admin: 02/17/24 21:38 Dose: 3 ml Documented By: ROSIE Trazodone HCl (Trazodone Hcl 25 Mg Halftab) 25 mg PO BEDTIME PRN PRN Reason: Sleep Last Admin: 02/17/24 21:37 Dose: 25 mg Documented By: ROSIE Zolpidem Tartrate (Zolpidem Tartrate 5 Mg Tablet) 5 mg PO BEDTIME PRN PRN Reason: insomnia Last Admin: 02/17/24 21:37 Dose: 5 mg Documented By: ROSIE Labs 02/18/24 05:59 02/18/24 05:59 Labs: Laboratory Results - last 24 hr 02/17/24 02/17/24 02/17/24 10:17 10:18 10:27 MCV 90.0 MCH 29.1 MCHC 32.4 RDW 15.6 Plt Count 425 H D MPV 8.7 L Immature Gran % (Auto) 0.5 H Neut % (Auto) 80.5 H Lymph % (Auto) 10.9 L [place] % (Auto) 7.0 Eos % (Auto) 0.7 Baso % (Auto) 0.4 Lymph # (Auto) 0.9 L [place] # (Auto) 0.6 Eos # (Auto) 0.1 Baso # (Auto) 0.0 Abs Immat Gran (auto) 0.04 H Absolute Neuts (auto) 6.6 Absolute Nucleated RBC 0.000 Nucleated RBC % (auto) 0.0 Smear Tech's Comments PT 16.2 H D INR 1.3 H APTT 28.3 VBG pH 7.39 VBG pCO2 35 VBG pO2 45 VBG HCO3 21 L VBG O2 Saturation 63.0 VBG Base Excess -2.5 Anion Gap 14 Estim Creat Clear Calc 60.2 Estimated GFR > 60 Random Glucose 132 H Lactic Acid 2.3 H* Lactic Acid F/U @ 2Hr Calcium 9.4 Magnesium 2.1 Total Bilirubin 0.3 Direct Bilirubin 0.2 AST 16 ALT 17 Alkaline Phosphatase 86 Troponin I High Sens < 2.7 B-Natriuretic Peptide < 10 Total Protein 7.3 Albumin 3.2 L Urine Color Urine Appearance Urine pH Ur Specific [place] Urine Protein Urine Glucose (UA) Urine Ketones Urine Blood Urine Nitrite Ur Leukocyte Esterase Influenza Type A (PCR) Influenza Type B (PCR) RSV RNA Qual (PCR) SARS-CoV-2 RNA (RT-PCR) 02/17/24 02/17/24 02/17/24 11:01 13:19 14:03 MCV MCH MCHC RDW Plt Count MPV Immature Gran % (Auto) Neut % (Auto) Lymph % (Auto) [place] % (Auto) Eos % (Auto) Baso % (Auto) Lymph # (Auto) [place] # (Auto) Eos # (Auto) Baso # (Auto) Abs Immat Gran (auto) Absolute Neuts (auto) Absolute Nucleated RBC Nucleated RBC % (auto) Smear Tech's Comments PT INR APTT VBG pH VBG pCO2 VBG pO2 VBG HCO3 VBG O2 Saturation VBG Base Excess Anion Gap Estim Creat Clear Calc Estimated GFR Random Glucose Lactic Acid Lactic Acid F/U @ 2Hr 1.9 Calcium Magnesium Total Bilirubin Direct Bilirubin AST ALT Alkaline Phosphatase Troponin I High Sens B-Natriuretic Peptide Total Protein Albumin Urine Color Yellow Urine Appearance Clear Urine pH 7.5 Ur Specific [place] >= 1.030 H Urine Protein Negative Urine Glucose (UA) Negative Urine Ketones Negative Urine Blood Negative Urine Nitrite Negative Ur Leukocyte Esterase Negative Influenza Type A (PCR) NEGATIVE Influenza Type B (PCR) NEGATIVE RSV RNA Qual (PCR) NEGATIVE SARS-CoV-2 RNA (RT-PCR) NEGATIVE 02/18/24 05:59 MCV 89.8 MCH 28.9 MCHC 32.2 RDW 15.6 Plt Count 456 H MPV 9.2 L Immature Gran % (Auto) 0.5 H Neut % (Auto) 90.8 H Lymph % (Auto) 7.1 L [place] % (Auto) 1.5 L Eos % (Auto) 0.0 Baso % (Auto) 0.1 Lymph # (Auto) 0.6 L [place] # (Auto) 0.1 Eos # (Auto) 0.0 Baso # (Auto) 0.0 Abs Immat Gran (auto) 0.04 H Absolute Neuts (auto) 7.3 Absolute Nucleated RBC 0.000 Nucleated RBC % (auto) 0.0 Smear Tech's Comments VERIFIED PT INR APTT VBG pH VBG pCO2 VBG pO2 VBG HCO3 VBG O2 Saturation VBG Base Excess Anion Gap 12 Estim Creat Clear Calc 80.6 Estimated GFR > 60 Random Glucose 148 H Lactic Acid Lactic Acid F/U @ 2Hr Calcium 9.0 Magnesium Total Bilirubin Direct Bilirubin AST ALT Alkaline Phosphatase Troponin I High Sens B-Natriuretic Peptide Total Protein Albumin Urine Color Urine Appearance Urine pH Ur Specific [place] Urine Protein Urine Glucose (UA) Urine Ketones Urine Blood Urine Nitrite Ur Leukocyte Esterase Influenza Type A (PCR) Influenza Type B (PCR) RSV RNA Qual (PCR) SARS-CoV-2 RNA (RT-PCR) Assessment and Plan (1) Pneumonia: Status: Acute (2) Asthma with exacerbation: Status: Acute (3) Aspiration pneumonia: Status: Acute Plan 68/F with history of stage III squamous cell carcinoma, hyperlipidemia, hypertension, asthma/COPD overlap admitted for bilateral pneumonia with acute hypoxemic respitatory failure in immunocompromised pt #Acute bilateral pneumonia with acute hypoxemic respiratory failure and severe sepsis--improving -cehck legionella ag, strep pneumo ag, mrsa nasal swab, and sputum culture pending -Zosyn/Vancomycin started 02/16 -guaifenesin prn -follow cbc/cultures -continue supplemental O2 to maintain oximetry 90-92%, wean as tolerated per protocol #Asthma/copd exacerbation -iv methylprednisolone 40mg bid, change to prednisone by tomorrow -duonebs q4h/prn #Stage III squamous cell carcinoma lung -follows with Dr. García at [facility] and completed 2 rounds of paclitaxel/carboplatin on 01/01 stopped due to weight loss and recently started immunotherapy with durvalumab on 01/26 weekly -outpt follow up #HTN -continue lisinopril am #HLD -statin dvt prophylaxis- lovenox full code pt requires inpatient stay at least 2 midnights for management of bilateral pneumonia with acute hypoxemic respiratory failure and severe sepsis in immunocompromised patient requiring IV antibiotics and close monitoring of hemodynamics to monitor for and prevent decompensation Quality Stroke Does the patient have a stroke diagnosis?: No VTE Prior VTE?: No VTE Risk Level:: Medical - moderate - high VTE Device Contraindication: Treatment Not Indicated VTE Drug Contraindication: N/A - Med Ordered
[2024-02-18] MEDS: Albuterol/Iprat 2.5/0.5MG 3 ML AMPUL.NEB INHALE ×3 (07:47→20:31)
[2024-02-18] MEDS: Clopidogrel Bisulfate 75 MG TABLET PO (08:06)
[2024-02-18] MEDS: Pantoprazole Sodium 20 MG TABLET.DR PO (08:06)
[2024-02-18] MEDS: Sennosides/Docusate Sodium TABLET 2 TAB PO (08:06)
[2024-02-18] MEDS: Megestrol Acetate 20 MG TABLET 40 MG PO (08:06)
[2024-02-18] MEDS: Loratadine 10 MG TABLET PO (08:06)
[2024-02-18] MEDS: LORazepam 1 MG TABLET PO ×2 (08:06→22:14)
[2024-02-18] MEDS: Atorvastatin Calcium 10 MG TABLET PO ×2 (08:07→22:14)
[2024-02-18] MEDS: methylPREDNISolone Sod Succ 40 MG/ML VIAL IVPUSH ×2 (08:07→22:15)
[2024-02-18] MEDS: 0.9 % Sodium Chloride Flush 3 ML SYRINGE IVFLUSH ×3 (08:07→22:16)
[2024-02-18 10:41] LABS: MRSA Nasal PCR NEGATIVE (Negative); SA Nasal PCR NEGATIVE (Negative)
[2024-02-18 11:36] LABS: Adenovirus PCR Not Detected (Not Detect.); Bordetella parapertussis PCR Not Detected (Not Detect.); Bordetella pertussis PCR Not Detected (Not Detect.); Chlamydia pneumoniae PCR Not Detected (Not Detect.); Coronavirus 229E PCR Not Detected (Not Detect.); Coronavirus HKU1 PCR Not Detected (Not Detect.); Coronavirus NL63 PCR Not Detected (Not Detect.); Coronavirus OC43 PCR Not Detected (Not Detect.); Human metapneumovirus PCR Not Detected (Not Detect.); Influenza A PCR Not Detected (Not Detect.); Influenza B PCR Not Detected (Not Detect.); Mycoplasma pneumoniae PCR Not Detected (Not Detect.); Parainfluenza 1 PCR Not Detected (Not Detect.); Parainfluenza 2 PCR Not Detected (Not Detect.); Parainfluenza 3 PCR Not Detected (Not Detect.); Parainfluenza 4 PCR Not Detected (Not Detect.); RSV PCR Not Detected (Not Detect.); Rhino/Enterovirus PCR Not Detected (Not Detect.)
[2024-02-18 11:52] LABS: SARS-CoV-2 PCR Not Detected (Not Detect.)
[2024-02-18] MEDS: oxyCODONE HCl Immed Release 5 MG TABLET PO ×3 (12:05→22:26)
--- NOTE | 2024-02-18 12:17 | MHC.CLN ---
RE: CONSULT FOR WT LOSS CURRENT WT 59.1KG (02/17/24) PREVIOUS WT 58.9KG (09/18/23) NO SIGNIFICANT WT LOSS NOTED NO NEW ORDERS CONTINUE CURRENT CARE PLAN
--- NOTE | 2024-02-18 12:27 | MHC.CM.PN ---
IMM 02/18/24, EMR REVIEWED PT W/PNA/HYPOXIA, CM MET W/PT VIA SUPERVISOR INSPECTING, MARIBEL JAEGER ALSO PRESESNT, PT REPORTS SHE LIVES W/HER SON GUILHERME, PT IS INDEP W/ALL CARE, DENIES USE OF DME/SERVICES AND DENIES NEED FOR SERVICES. PT VERIFIES PCP, HAS BEEN EDUCATED ON AND COMPLETED A HCP NAMING HER SON GUILHERME KEYES [phone] HER [facility] AND MARIBEL JAEGER WALI [phone] HER ALTERNATE, COPY UPLOADED TO [facility] AND PLACED IN CHART.
[2024-02-18] MEDS: Enoxaparin Sodium 40 MG/0.4 ML SYRINGE SUBCUT (17:51)
[2024-02-18 18:14] LABS: Vancomycin Random 29.6 mcg/mL (15-20)
--- NOTE | 2024-02-18 20:38 | HE.PHANOTE ---
FARHEENO Increasing dose to 1250mg Q12H per improved renal function and subtherapeutic trough of 8.0. Next trough to be drawn 02/18 @1999. Predicted AUC 507, predicted trough 12.6.
[2024-02-18] MEDS: vancomycin HCL 1,250 MG in 0.9 % Sodium Chloride 250 ML 166.67 MG IV (22:22)
[2024-02-19] MEDS: Piperacillin Sodium/Tazobactam 4.5 GM in 0.9 % Sodium Chloride 100 ML IV ×2 (00:33→06:10)
[2024-02-19 03:20] VITALS: BP 100/61; PULSE 82; RESP 18; TEMP 36.4; O2SAT 96
[2024-02-19] MEDS: guaiFENesin 200 MG/10 ML 10 ML LIQUID PO (06:06)
[2024-02-19] MEDS: oxyCODONE HCl Immed Release 5 MG TABLET PO (06:07)
[2024-02-19 06:17] LABS: Creatinine Clr Calc Pharmacy 88.5; Estimated Glomerular Filt Rate > 60
[2024-02-19 07:00] VITALS: BP 121/64; PULSE 80; RESP 14; TEMP 36.6; O2SAT 92
[2024-02-19 07:38] LABS: Anion Gap 12 (12-20); Carbon Dioxide 24 mmol/L (22-29); Chloride 108 mmol/L (96-108); Potassium 4.2 mmol/L (3.3-5.1); Sodium 140 mmol/L (135-145)
[2024-02-19] MEDS: Megestrol Acetate 20 MG TABLET 40 MG PO (07:54)
[2024-02-19] MEDS: LORazepam 1 MG TABLET PO (07:54)
[2024-02-19] MEDS: methylPREDNISolone Sod Succ 40 MG/ML VIAL IVPUSH (07:54)
[2024-02-19] MEDS: Loratadine 10 MG TABLET PO (07:54)
[2024-02-19] MEDS: Atorvastatin Calcium 10 MG TABLET PO (07:54)
[2024-02-19] MEDS: Clopidogrel Bisulfate 75 MG TABLET PO (07:54)
[2024-02-19] MEDS: Pantoprazole Sodium 20 MG TABLET.DR PO (07:54)
[2024-02-19] MEDS: Sennosides/Docusate Sodium TABLET 2 TAB PO (07:54)
[2024-02-19] MEDS: 0.9 % Sodium Chloride Flush 3 ML SYRINGE IVFLUSH (07:55)
[2024-02-19 08:14] LABS: Basophils Percent Auto 0.1 % (0-2); Hematocrit 26.7 % (37.0-47.0); Hemoglobin 8.5 g/dl (12.0-16.0); Imm Gran Abs Auto 0.07 X10*3/uL (0.00-0.03); Imm Gran Pct Auto 0.5 % (0.0-0.4); Lymphocytes Absolute Auto 0.5 X10*3/uL (1.2-4.9); MANUAL DIFF FLAG SCAN; Mean Corpuscular HGB Conc 31.8 g/dl (31.0-35.0); Mean Corpuscular Hemoglobin 29.2 pg (27.0-33.0); Mean Corpuscular Volume 91.8 fL (80.0-98.0); Mean Platelet Volume 9.2 fL (9.4-12.3); Monocytes Absolute Auto 0.4 X10*3/uL (0.1-1.2); Monocytes Percent Auto 2.7 % (2-11); Neutrophils Percent Auto 92.7 % (45-73); Platelet Count 432 X10*3/uL (160-400); Red Blood Count 2.91 X10*6/uL (4.20-5.50); Red Cell Distribution Width 15.7 % (11.0-16.0); SCAN SMEAR FLAG 1; White Blood Count 12.9 X10*3/uL (4.8-10.8)
[2024-02-19 08:32] VITALS: PULSE 83; RESP 16; O2SAT 91
[2024-02-19] MEDS: Albuterol/Iprat 2.5/0.5MG 3 ML AMPUL.NEB INHALE (08:32)
[2024-02-19 09:00] LABS: SLIDE REVIEW VERIFIED
--- NOTE | 2024-02-19 09:06 | PM.DS ---
DS: Providers Provider Date of Service: 02/19/24 Date of admission: 02/17/24 16:26 Primary care physician: Weston Lawton III, MD DS: Diagnosis Discharge Diagnosis (1) Pneumonia: Status: Acute (2) Asthma with exacerbation: Status: Acute (3) Aspiration pneumonia: Status: Acute DS: Summary Hospital Course Hospital Course: admission hpi Chief Complaint: cough,sob 68-year-old female with history of stage III squamous cell carcinoma, hyperlipidemia, hypertension, asthma/COPD overlap presented to the ED earlier today for evaluation of productive cough with white sputum, nasal congestion, shortness of breath, and pleuritic chest pain ongoing for 3 days. Reports her son is sick at home with similar symptoms. She also reports burning epigastric pain with nausea and vomiting. No fevers, chills, st, diarrhea, wheezing, lightheadedness, or chest pressure. She follows with Dr. García at [facility] and completed 2 rounds of paclitaxel/carboplatin on 01/01 stopped due to weight loss and recently started immunotherapy with durvalumab on 01/26 weekly. Reports tolerating this well. On arrival, hypoxic to the mid 80s and now maintaining oximetry 95% on 3L. She was also mildly tachycardic and tachypneic. No leukocytosis. Renal function baseline, electrolyte levels normal. Initial lactate 2.3, repeat 1.9. Hepatic function within normal limits. Troponin undetectable, BNP undetectable. Urinalysis unremarkable. Negative for COVID, RSV, influenza. CTA chest negative for PE but shows interval development of extensive ground-glass and reticular interstitial densities bilateral lungs likely compatible with widespread atypical pneumonia including acute viral pneumonia. There is also interval decrease in size of lung mass lesion at the medial border of the right lower lobe with emphysema present in the bilateral upper lobes. In the ED, has received DuoNeb and methylprednisolone. She has also been started on IV Zithromax and Rocephin and given IV NS. Hospital course: The patient was admitted with pneumonia, hypoxia, and an asthma exacerbation. She was started on IV Zosyn and vancomycin, along with bronchodilators and steroids for the asthma exacerbation. She has responded well to therapy, is no longer hypoxic, feels well, and has clear lungs. She will be transitioned to oral Augmentin 875 mg twice daily for a total of 7 days of antibiotics and Prednisone 20 mg daily for a total of 5 days of steroid for the asthma exacerbation. Final diangoses: Acute hypoxic respiratory failure Pneumonia ASthma exacerbation Time Attestation Discharge Coordination Time (in mins): 35 Quality: Safe Use of Opioids Does Pt have an Active Cancer Diagnosis on the Problem List?: No Quality: Stroke Does the patient have a stroke diagnosis?: No Physical Exam Vital Signs: Vital Signs: Last Vital Signs Temp 97.8 F 02/19/24 07:00 Pulse 83 02/19/24 08:32 Resp 16 02/19/24 08:32 BP 121/64 02/19/24 07:00 Pulse Ox 92 02/19/24 07:00 O2 Del Method Room Air 02/19/24 07:00 O2 Flow Rate 3 02/19/24 03:20 BMI result Body Mass Index 23.1 General: AO X 3, no acute distress Resp: CTA bilateral CVS: S1,S2,RRR GI: +BS, NT, no distention Skin: No rash Neuro: motor grossly intact Psych: appropriate affect DS: Data Data Completed and Pending Labs on day of discharge: Laboratory Results - last 24 hr 02/17/24 02/17/24 02/18/24 17:37 17:38 15:59 WBC RBC Hgb Hct MCV MCH MCHC RDW Plt Count MPV Immature Gran % (Auto) Neut % (Auto) Lymph % (Auto) [place] % (Auto) Eos % (Auto) Baso % (Auto) Lymph # (Auto) [place] # (Auto) Eos # (Auto) Baso # (Auto) Abs Immat Gran (auto) Absolute Neuts (auto) Absolute Nucleated RBC Nucleated RBC % (auto) Smear Tech's Comments Hold Purple Top Sodium Potassium Chloride Carbon Dioxide Anion Gap Creatinine Estim Creat Clear Calc Estimated GFR Nasal Screen MRSA (PCR) NEGATIVE Nasal S. aureus Screen NEGATIVE Nasal MRSA/S.aureus Interp SEE NOTE Random Vancomycin 29.6 H* Respiratory Panel Dow See Note Adenovirus (Rapid PCR) Not Detected B.pert (TEM-PCR) Not Detected B.parapertussis DNA PCR Not Detected C. pneumoniae DNA (PCR) Not Detected Coronavirus OC43 (PCR) Not Detected Coronavirus HKU1 (PCR) Not Detected Coronavirus 229E (PCR) Not Detected Coronavirus NL63 (PCR) Not Detected Human Metapneumovir PCR Not Detected Influenza A (RT-PCR) Not Detected Influenza B (RT-PCR) Not Detected M. pneumoniae (PCR) Not Detected Parainfluenza 1 (PCR) Not Detected Parainfluenza 2 (PCR) Not Detected Parainfluenza 3 (PCR) Not Detected Parainfluenza 4 (PCR) Not Detected RSV (PCR) Not Detected Entero/Rhino (PCR) Not Detected SARS-CoV-2 RNA (RT-PCR) Not Detected 02/18/24 02/19/24 20:00 05:16 WBC 12.9 H RBC 2.91 L Hgb 8.5 L Hct 26.7 L MCV 91.8 MCH 29.2 MCHC 31.8 RDW 15.7 Plt Count 432 H MPV 9.2 L Immature Gran % (Auto) 0.5 H Neut % (Auto) 92.7 H Lymph % (Auto) 4.0 L [place] % (Auto) 2.7 Eos % (Auto) 0.0 Baso % (Auto) 0.1 Lymph # (Auto) 0.5 L [place] # (Auto) 0.4 Eos # (Auto) 0.0 Baso # (Auto) 0.0 Abs Immat Gran (auto) 0.07 H Absolute Neuts (auto) 12.0 H Absolute Nucleated RBC 0.000 Nucleated RBC % (auto) 0.0 Smear Tech's Comments VERIFIED Hold Purple Top SEE NOTE Sodium 140 Potassium 4.2 Chloride 108 Carbon Dioxide 24 Anion Gap 12 Creatinine 0.51 Estim Creat Clear Calc 88.5 Estimated GFR > 60 Nasal Screen MRSA (PCR) Nasal S. aureus Screen Nasal MRSA/S.aureus Interp Random Vancomycin 8.0 L Respiratory Panel Dow Adenovirus (Rapid PCR) B.pert (TEM-PCR) B.parapertussis DNA PCR C. pneumoniae DNA (PCR) Coronavirus OC43 (PCR) Coronavirus HKU1 (PCR) Coronavirus 229E (PCR) Coronavirus NL63 (PCR) Human Metapneumovir PCR Influenza A (RT-PCR) Influenza B (RT-PCR) M. pneumoniae (PCR) Parainfluenza 1 (PCR) Parainfluenza 2 (PCR) Parainfluenza 3 (PCR) Parainfluenza 4 (PCR) RSV (PCR) Entero/Rhino (PCR) SARS-CoV-2 RNA (RT-PCR) Preliminary micro results at discharge 02/17/24 11:01 Blood Culture - Preliminary Blood - Venous No growth after 24 hours. 02/17/24 10:24 Blood Culture - Preliminary Blood - Venous No growth after 24 hours. Discharge Plan Discharge Anticipated Discharge Date/Time: 02/19/24 08:55 Patient Disposition: Home, Self-Care Discharge Diagnosis: Acute hypoxic respiratory failure due Pneumonia and asthma exacerbation, Referrals: Weston Lawton III, MD [Primary Care Provider] - 1 Week Discharge Medications: New amoxicillin-pot clavulanate 875-125 mg Tablet 1 tab PO Q12H Qty: 10 0RF prednisone 20 mg tablet 20 mg PO DAILY Qty: 3 0RF oxycodone 5 mg Tablet 5 mg PO Q6H Qty: 10 0RF Rx Instructions: Partial Fill upon patient request. Continued atorvastatin 20 mg Tablet 10 mg PO BID sennosides-docusate sodium [Stimulant Laxative Plus] 8.6-50 mg tablet 2 tab PO DAILY lisinopril 10 mg tablet 10 mg PO DAILY omeprazole 20 mg capsule,delayed release(DR/EC) 20 mg PO DAILY albuterol sulfate 90 mcg/actuation HFA aerosol inhaler 2 puff inhalation Q4H PRN (Reason: wheezing) oxycodone 5 mg tablet 5 mg PO BID lorazepam 1 mg tablet 1 mg PO BID megestrol 40 mg tablet 40 mg PO DAILY ondansetron 8 mg tablet,disintegrating 8 mg PO TID PRN (Reason: Nausea And Vomiting) Combivent Respimat 20-100 mcg/actuation mist 1 puff inhalation Q4H PRN (Reason: wheezing) trazodone 50 mg tablet 25 mg PO BEDTIME PRN (Reason: Sleep) clopidogrel 75 mg tablet 75 mg PO DAILY zolpidem 5 mg tablet 5 mg PO DAILY PRN (Reason: insomnia) loratadine 10 mg tablet 10 mg PO DAILY Discharge Orders: Discharge Order (Routine); Ordered 02/19/24 Ordered By: Emigdio Salazar Diet: Advance to usual diet Activity on Discharge: As tolerated Stand Alone Forms: Patient Portal Discharge page Print Language: Tunisian Care Plan Goals: recovery from pneumonia and asthma exacerbation Health Concerns: pneumonia hypoxia asthma exacerbation Plan of Treatment: take Augmentin for pneumonia and follow up with your Doctor in a week take Prednisone for asthma and continue using inhalers Assessment: see above
[2024-02-19] MEDS: lisinopriL 10 MG TABLET PO (09:39)
[2024-02-19] MEDS: Amoxicillin/Potassium Clav 875 MG TABLET PO (09:39)
--- NOTE | 2024-02-19 10:54 | MHC.CM.PN ---
PT MEDICALLY CLEARED FOR [place] HOME SELF CARE, FAMILY FOR TRANSPORT
[2024-02-20 22:48] LABS: Strep Pneumo Ag urine Not Detected (Not Detected)
[2024-02-24 05:58] LABS: Legionella Ag Urine Not Detected (Not Detected)
== END 2024-02-19 09:46 | disposition home or self-care (01) | DRG 193 ==
LOC: HO.ED 15:08 → HO.EDOVER 16:41 → HO.S3 18:00
PROVIDERS: Admitting Provider Physician Assistant; Emergency Provider Emergency Medicine; PCP Internal Medicine; Visit Provider Internal Medicine
DX: J12.9 Viral pneumonia, unspecified (principal); J96.01 Acute respiratory failure with hypoxia; J45.41 Moderate persistent asthma with (acute) exacerbation; J44.0 Chronic obstructive pulmonary disease with (acute) lower respiratory infection; J44.1 Chronic obstructive pulmonary disease with (acute) exacerbation; C34.91 Malignant neoplasm of unspecified part of right bronchus or lung; D84.821 Immunodeficiency due to drugs; J69.0 Pneumonitis due to inhalation of food and vomit; I10 Essential (primary) hypertension; E78.5 Hyperlipidemia, unspecified; Z20.822 Contact with and (suspected) exposure to COVID-19; Z87.891 Personal history of nicotine dependence; Z79.02 Long term (current) use of antithrombotics/antiplatelets; Z79.899 Other long term (current) drug therapy
CPT/HCPCS: 0241U; 36415; 71275; 80048; 80051; 80076; 80202; 81003; 82565; 82803; 83605; 83735; 83880; 84484; 85025; 85610; 85730; 87040; 87070; 87205; 87449; 87633; 87640; 87641; 87899; 93005; 94640; 99285; J0456; J0696; J1650; J2543; J2919; J3370; J3371; Q9967

== ENCOUNTER → 2024-02-17 09:33 | Outpatient (BNV) | payer MEDICARE, SELFPAY | PROVIDERS: Admitting Provider Physician Assistant; Emergency Provider Emergency Medicine; PCP Internal Medicine; Visit Provider Internal Medicine Cardiovascular Disease | DX: R06.00 Dyspnea, unspecified (principal) | CPT/HCPCS: 93010 ==

== ENCOUNTER → 2024-02-17 16:26 | Outpatient (BNV) | payer MEDICARE, SELFPAY | PROVIDERS: Admitting Provider Physician Assistant; Emergency Provider Emergency Medicine; PCP Internal Medicine; Visit Provider Physician Assistant | DX: J69.0 Pneumonitis due to inhalation of food and vomit (principal); J45.41 Moderate persistent asthma with (acute) exacerbation | CPT/HCPCS: 99222; 99232; 99239 ==